=== PATIENT | female | born 1940 | race Caucasian/White ===

== ENCOUNTER 2024-02-07 09:17 | Inpatient (IN) | payer MEDICARE, MEDICAID, SELFPAY ==
[2024-02-07] VITALS (20 sets, daily range): BP systolic 116–162; BP diastolic 51–86; PULSE 90–110; RESP 15–21; TEMP 36.6–37.4; O2SAT 94–100; BMI 22.7
--- NOTE | 2024-02-07 10:02 | EKG_ITS ---
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
--- NOTE | 2024-02-07 10:20 | PC.NURSE ---
Possible pressur eulcers noted on pt's sacrum; pt given perineal care after having a BM; pt placed on new/clean briefs and placed allevyn foam dressing on pt's sacrum at this time.
[2024-02-07 11:31] LABS: Basophils % (Auto) 0 % (0-2.5); Eosinophils % (Auto) 0 % (0-10); Immature Granulocytes % (Auto) 0 % (0-0); Lymphocytes # (Auto) 0.7 Thou/mm3 (1.0-4.8); Lymphocytes % (Auto) 34 % (10-50); Mean Corpuscular HGB Conc 28.6 g/dl (31.0-37.0); Mean Corpuscular Hemoglobin 23.9 pg (25.0-35.0); Mean Corpuscular Volume 84 fL (80-100); Monocytes # (Auto) 0.9 Thou/mm3 (0.0-0.8); Monocytes % (Auto) 46 % (0-12); Neutrophils # (Auto) 0.4 Thou/mm3 (1.8-7.7); Neutrophils % (Auto) 20 % (37-80); Nucleated Red Blood Cell # 0.03 Thou/mm3 (0.00-0.00); Nucleated Red Blood Cell % 2 /100 WBC (0); RDW Standard Deviation 75.8 fL (36.4-46.3); Red Blood Count 1.59 Miln/mm3 (4.00-5.20)
--- NOTE | 2024-02-07 11:34 | PC.NURSE ---
SPOKE TO ARIK VILLEGAS, PT'S SON, REGARDING PT'S POC.
[2024-02-07 11:40] LABS: Hematocrit 13.3 % (36.0-46.0); Hemoglobin 3.8 g/dL (12.0-16.0); Platelet Count 35 Thou/mm3 (140-440)
--- NOTE | 2024-02-07 11:40 | EDNOTE_ITS ---
ED Recheck Abnl Lab Rx-RME/HPI General Chief Complaint: Recheck/Abnormal Lab/Rx Stated Complaint: ABNORMAL LABS Time Seen by Provider: 02/07/24 10:53 Arrival date/time: 02/07/24 09:17 RME / HPI RME / HPI narrative: 83 year old female with history of CAD, hypotension, diabetes, hyperlipidemia, COPD, UTI's, presents to the ED from [facility] for evaluation of low hemoglobin levels today. Per medics, [place] staff reported patient has had generalized weakness and on 02/05/2024 had labs drawn which showed H/H of 3.6/12.2. Sent here today for further evaluation and treatment. Related Data Allergies Allergy/AdvReac Type Severity Reaction Status Date / Time bee venom protein (honey bee) Allergy Severe Anaphylaxis Verified 02/07/24 10:47 iodine Allergy Severe Anaphylaxis Verified 02/07/24 10:47 Review of Systems Review of Systems Narrative Review of Systems: GEN: No fever, no chills, no weight loss, +generalized weakness EYES: No discharge, no pain HEENT: No ear pain, no congestion, no sore throat PULM: No shortness of breath, no cough, no congestion CV: No chest pain, no palpitations GI: No nausea, no vomiting, no diarrhea, no pain, no constipation : No frequency, no urgency, no dysuria MUSC/SKEL: No joint pain, no back pain SKIN: No rash NEURO: +generalized weakness, no headache Past Medical History Past Medical History CARDIAC: Positive Cardiac Disorders (BRADYCARDIA), Atherosclerotic Heart Disease and Hypercholesterolemia RESPIRATORY: Positive Respiratory Disorders, Chronic Obstructive Pulmonary Disease (COPD) and Pulmonary Embolism ENDOCRINE: Positive Endocrine Disorders and Diabetes Mellitus Type 2 PSYCHO/SOCIAL: Positive Depression and Anxiety Social History SMOKING STATUS: Current every day smoker ED Exam Narrative Physical exam: GENERAL APPEARANCE: alert and oriented x 4, well-developed, well-nourished, no acute distress. Patient looks pale. VITALS: All vitals were reviewed and the pulse ox is 95% on room air, which is normal according to my interpretation. HEENT: Normocephalic, atraumatic; pupils equal, round, reactive to light; EOMI; mucous membranes pink, moist; oropharynx clear NECK: Supple LUNGS: CTABL; no wheezes, no rales, no rhonchi HEART: Regular rate, regular rhythm; normal S1, S2; no murmurs ABDOMEN: non distended; normal BS; soft, no tenderness, no guarding, no rebound; no masses, no organomegaly, no hernia BACK: no CVA tenderness EXTREMITIES: atraumatic; no edema NEUROLOGIC: awake; alert and oriented x4; cranial nerves II-XII grossly intact; no focal sensory or motor deficits PSYCHIATRIC: appropriate mood and affect SKIN: warm, dry, normal color; no rashes Course Quality Measures none Orders Category Date Time Status Admit to Inpatient Status Routine Admission 02/07/24 17:24 Active Patient Condition Routine Admission 02/07/24 17:[address] Screening NOW Care 02/07/24 15:29 Active Swaging Machine Adjuster NOW Care 02/07/24 10:53 Completed EKG (ED ONLY) *Do not use* NOW Care 02/07/24 10:02 Completed NPO after Midnight ONCE Care 02/07/24 16:48 Active Notify provider NEEDED Care 02/07/24 17:24 Active Occult Blood,Stool (Nursing) NOW Care 02/07/24 13:45 Active Sequential Compression Device QSHIFT Care 02/07/24 17:27 Active Transfuse,blood/blood products NOW Care 02/07/24 14:27 Active Consult to Gastroenterology Stat Cons 02/07/24 16:46 Ordered Diet NPO after Midnight Diet 02/08/24 00:[address] abdomen pelvis wo con Stat Exams 02/07/24 15:30 Completed EKG (ED Only) Stat Exams 02/07/24 10:02 Draft B-Type Natriuretic Peptide Stat Lab 02/07/24 11:30 Completed Blood Culture (Lab) Stat Lab 02/07/24 17:00 Received CBC AM DRAW Lab 02/08/24 05:00 Ordered CBC AM DRAW Lab 02/09/24 05:00 Ordered CBC AM DRAW Lab 02/10/24 05:00 Ordered CBC Stat Lab 02/07/24 11:00 Completed Comprehensive Metabolic Panel AM DRAW Lab 02/08/24 05:00 Ordered Comprehensive Metabolic Panel AM DRAW Lab 02/09/24 05:00 Ordered Comprehensive Metabolic Panel AM DRAW Lab 02/10/24 05:00 Ordered Comprehensive Metabolic Panel Stat Lab 02/07/24 11:00 Completed Lactate (Lactic Acid) Stat Lab 02/07/24 17:00 Completed Lipase Stat Lab 02/07/24 11:00 Completed Magnesium AM DRAW Lab 02/08/24 05:00 Ordered Magnesium AM DRAW Lab 02/09/24 05:00 Ordered Magnesium AM DRAW Lab 02/10/24 05:00 Ordered Magnesium Stat Lab 02/07/24 11:00 Completed Occult Blood, Stool (LAB) Stat Lab 02/07/24 15:20 Completed Partial Thromboplastin Time Stat Lab 02/07/24 11:[address] Review Blood Smear Stat Lab 02/07/24 11:[address] Review Blood Smear Stat Lab 02/07/24 17:31 Ordered Phosphorous AM DRAW Lab 02/08/24 05:00 Ordered Phosphorous AM DRAW Lab 02/09/24 05:00 Ordered Phosphorous AM DRAW Lab 02/10/24 05:00 Ordered Procalcitonin Stat Lab 02/07/24 17:00 Received Prothrombin Time with INR Stat Lab 02/07/24 11:00 Completed Red Blood Cells Stat Lab 02/07/24 10:54 Results Troponin I Q6H Lab 02/07/24 17:30 Ordered Troponin I Q6H Lab 02/07/24 23:30 Ordered Troponin I Q6H Lab 02/08/24 05:30 Ordered Troponin I Stat Lab 02/07/24 11:00 Completed Type and Screen Stat Lab 02/07/24 10:54 Results UA [Urinalysis] Stat Lab 02/07/24 17:29 Ordered Acetaminophen Supp [Tylenol Supp] Med 02/07/24 17:25 Active 650 mg NM Q6H PRN Octreotide Acet Inj [SandoSTATIN Inj] Med 02/07/24 17:30 Discontinued 50 mcg IV X1 ONE Ondansetron Inj [Zofran Inj] Med 02/07/24 15:30 Discontinued 4 mg IV X1 ONE Pantoprazole Inj [Protonix Inj] Med 02/07/24 15:30 Discontinued 80 mg IV X1 ONE Pantoprazole/Ns 80Mg IV Premix [Protonix/NS 80mg IV Med 02/07/24 15:30 Active Premix] 80 mg in 100 ml IV X1 Senna [Senokot] Med 02/07/24 17:25 Ordered 1 tab PO QDAY PRN Sodium Chloride 0.9% [Ns] 100 ml Med 02/07/24 17:31 Ordered Octreotide Acet Inj [SandoSTATIN Inj] 1,000 mcg IV 50 mcg/hr fentaNYL INJ [Sublimaze Inj] Med 02/07/24 15:30 Discontinued 50 mcg IVP X1 ONE oxyCODONE/APAP 5/325 [Percocet 5/325] Med 02/07/24 17:25 Active 1 tab PO Q6H PRN Code Status Routine Oth 02/07/24 17:23 Ordered Vital Signs Vital signs: Vital Signs Temperature 99.1 F 02/07/24 09:19 Pulse Rate 107 H 02/07/24 09:19 Respiratory Rate 16 02/07/24 09:19 Blood Pressure 116/61 02/07/24 09:19 Pulse Oximetry (%) 100 02/07/24 09:19 Oxygen Delivery Method Room Air 02/07/24 09:19 Pulse ox is 100% on room air which is adequate. Recheck / Abnormal Lab / Rx MDM Narrative MDM Narrative:: Vania Tadeo am scribing for and in the presence of Dr. Acosta. Patient data External records reviewed:: EMS form and Residential records (I reviewed txfer ppw from [facility], I reviewed outpatient labs drawn 02/05/2024, pmhx, and medication list ) Clinical information provided by:: patient and EMS Social determinants that could affect healthcare access:: housing (SNF resident) Patient has the following chronic illnesses:: CAD, hypotension, diabetes, hyperlipidemia, COPD, UTI's How is presenting disease/condition affected by chronic disease/condition?: exacerbated by Evaluation data The following diagnostics were reviewed and interpreted by me:: lab results and EKG tracing(s) (sinus tachycardia, rate 111, nonspecific ST-T changes) Lab and/or radiology exams considered but not ordered:: None Interpretation Summary: H/H 3.8/13.3 Medications / Prescriptions Medications or Prescriptions considered but not ordered:: None Medication administrations:: Medication Administration History Acetaminophen (Acetaminophen Supp 650 Mg Supp) 650 mg NM Q6H PRN PRN Reason: Pain Scale 1-3 or fever 100.3 Stop: 03/08/24 17:24 Pantoprazole Sodium (Protonix/Ns 80mg Iv Premix) 80 mg in 100 mls @ 10 mls/hr IV X1 ONE Stop: 02/08/24 01:29 Last Admin: 02/07/24 16:29 Dose: 10 mls/hr Documented By: GM Octreotide Acetate 1,000 mcg/ (Sodium Chloride) 102 mls @ 5.1 mls/hr IV .Q20H CHUYITA; Protocol Stop: 02/12/24 17:31 Oxycodone/Acetaminophen (Oxycodone/Apap 5/325 Tablet) 1 tab PO Q6H PRN PRN Reason: PAIN SCALE 4-6 (Moderate Stop: 02/12/24 17:24 Sennosides (Senna Tablet) 1 tab PO QDAY PRN; Protocol PRN Reason: constipation Stop: 03/08/24 17:24 Discontinued Medications Fentanyl Citrate (Fentanyl Cit Inj 50 Mcg/Ml Amp 2ml) 50 mcg IVP X1 ONE Stop: 02/07/24 15:31 Last Admin: 02/07/24 16:17 Dose: 50 mcg Documented By: GM Octreotide Acetate (Octreotide Acet Inj 50 Mcg/Ml Vial) 50 mcg IV X1 ONE Stop: 02/07/24 17:31 Ondansetron HCl (Ondansetron Inj 2 Mg/Ml Inj 2 Ml) 4 mg IV X1 ONE; Protocol Stop: 02/07/24 15:31 Last Admin: 02/07/24 16:18 Dose: 4 mg Documented By: GM Pantoprazole Sodium (Pantoprazole Inj 40 Mg Vial) 80 mg IV X1 ONE Stop: 02/07/24 15:31 Last Admin: 02/07/24 16:18 Dose: 80 mg Documented By: See above Consultations Consultation(s) initiated? (list below): Yes Consultation #1 (Physician, Specialty, Details): Discussed test HPI, PMHx, lab, radiology results and/or management with hospitalist. Will admit for further evaluation and management. Accepts patient for admission. Time: 17:24 Diagnosis Recheck Differential Diagnosis: warfarin-induced coagulopathy and other (anemia, dehydration, abnormal labs recheck) Most likely diagnosis given after review of the tests above:: As noted below. Admission Indicated Admission indicated?: indicated Admission Request Was there a request for admission?: Yes Admission Attestation Admission request attestation: Discussed case with [] from Hospitalist service regarding admission. Discussed patients ED course, exam findings, labs, and radiology results. The Hospitalist [agrees,declines] to accept the patient for admission. Disposition Plan Disposition Plan: Admit Discharge Plan Prescriptions/Referrals Referrals: Floyd Carlson MD [Primary Care Provider] - In 1 week Patient/Caregiver Discharge Instructions Print Language: [place]
[2024-02-07 11:51] LABS: INR 1.1 (0.9-1.3); Partial Thromboplastin Time 21.4 Seconds (22.0-36.0); Prothrombin Time 11.6 Seconds (9.0-12.2)
[2024-02-07 11:59] LABS: B-Type Natriuretic Peptide 738 pg/mL (0-100)
[2024-02-07 12:16] LABS: Slide Review Platelets confirmed
[2024-02-07 12:18] LABS: Alanine Aminotransferase < 7 U/L (10-49); Albumin, Serum 3.7 gm/dL (3.4-4.8); Albumin/Globulin Ratio 1.6 (1.2-2.2); Alkaline Phosphatase 74 U/L (46-116); Anion Gap 9 (7-16); Aspartate Amino Transferase 13 U/L (0-34); BUN/Creatinine Ratio 46 Ratio (12-20); Bilirubin,Total 0.3 mg/dL (0.3-1.2); Blood Urea Nitrogen 32 mg/dL (9-23); Calcium 8.8 mg/dL (8.3-10.6); Chloride 107 mMol/L (98-107); Creatinine (Component) 0.7 mg/dL (0.6-1.3); Estimated Creatinine Clearance 57.1 mL/min (>60); Globulin 2.3 gm/dL (2.3-3.5); Glucose 178 mg/dL (74-106); Lipase 23 U/L (12-53); Magnesium 2.2 mg/dL (1.6-2.6); Osmolality,Calculated 288 (275-295); Potassium 3.8 mMol/L (3.4-5.1); Sodium 139 mMol/L (136-145); eGFR > 60 See Note
[2024-02-07 12:21] LABS: Troponin I 1.361 ng/mL (0.0-0.045)
[2024-02-07 12:22] LABS: Path Review Blood Smear Sent to Pathologist
--- NOTE | 2024-02-07 15:27 | PC.NURSE ---
Stool for occult blood positive.
--- NOTE | 2024-02-07 15:30 | XR_ITS ---
Examination: CT abdomen and pelvis without contrast. Coronal 3-D reconstructions. Sagittal 2-D reconstructions. Date and time of exam:February 07, 2024 at 1538 hrs. Indications: Left abdominal pain today with melena, abnormal laboratory examinations today CTDI: vol (mGy): 5.69 DLP: (mGycm): 340 Technique: Axial images of the abdomen have been obtained, 3 mm slice thickness Intravenous contrast material has not been administered. Low dose protocols were performed. One or more of the following dose reduction techniques were used; automated exposure control, adjustment of the mA and/or KV according to patient size, use of iterative reconstruction technique. Findings: 16mm bleb in the left lower lobe No focal liver or splenic lesion Absent gallbladder No pancreatic or adrenal mass Moderate bilateral renal parenchymal scar formation Right renal staghorn type calcifications including in the right renal pelvis extending into the ureteropelvic junction, however no hydronephrosis Abdominal aortic calcification no aneurysmal dilatation Colonic diverticulosis Diffuse nonspecific colitis pattern, mild wall thickening on this noncontrast study Large amounts of stool in the rectum with thickening of the rectal wall up to 8 mm No bladder mass Absent uterus No pelvic mass Severe osteopenia Impression: Moderate bilateral renal parenchymal scar formation Right renal calculi, but no hydronephrosis No CT findings of appendicitis or bowel obstruction Diffuse nonspecific colitis pattern Large amounts of stool in the rectum with thickening the rectal wall up to 8 mm, consider proctitis, other etiologies for the wall thickening not excluded, consider direct inspection of the rectum
--- NOTE | 2024-02-07 15:36 | PC.NURSE ---
Patient gone to ct via gurney with transporter.
[2024-02-07 15:43] LABS: OBS Developer Lot # 124; OBS Performed By vasqk2; OBS QC OK? Yes; Occult Blood, Stool Positive (Negative)
--- NOTE | 2024-02-07 16:00 | PC.NURSE ---
DR. Leandra DERAS MADE AWARE OF PT'S LAB VALUES AND RN CALRIFIED IT MD WANTED TO INITIATE SEPSIS ALERT DUE TO PT'S LOW WBC AND MILD TACHYCARDIA. PER DR. DERAS, HOLD OFF ON INITIATING SEPSIS ALERT AT THIS TIME; WILL ORDER LACTIC ACID AND PROCALCITONIN FIRST.
[2024-02-07] MEDS: fentaNYL CIT INJ 50 mCg/ML AMP 2ML IVP (16:17)
[2024-02-07] MEDS: ONDANSETRON INJ 2 MG/ML INJ 2 ML 4 MG IV (16:18)
[2024-02-07] MEDS: PANTOPRAZOLE INJ 40 MG VIAL 80 MG IV (16:18)
[2024-02-07] MEDS: PANTOPRAZOLE/NS 80MG IV PREMIX 80 MG/100 ML BAG 10 MG IV (16:29)
--- NOTE | 2024-02-07 17:05 | PC.NURSE ---
DR. POSADA AT BEDSIDE ASSESSING PT.
[2024-02-07 17:09] LABS: Lactate (Lactic Acid) 1.6 mMol/L (0.4-2.0)
[2024-02-07 17:43] LABS: Procalcitonin 0.24 ng/ml (0.0-0.49)
--- NOTE | 2024-02-07 17:43 | ESHP_ITS ---
<Statement entered by Susan Andrea MD - 02/07/24 20:33> 83 yrs old female with CAD, type 2 diabetes mellitus, hyperlipidemia, COPD, hypertension, recurrent UTIs, active smoker who came to the ED from [facility] due to weakness and low hemoglobin level, she received 3 units of PRBC, GI on board, mild elevated troponin likely demand ischemaia, will trend trops, cardio on board. NPO after midnight possible egd tomorrow. Patient is DNI/DNR .patient was on xeralto for PE , last dose was yesterday morning . I discussed with and supervised my co-resident involved in the care of this patient. I agree with the assessment and plan as documented above. Susan Andrea,PGY-3 Disclaimer: Despite multiple revisions, due to the dictation software being used, the document below may not be free of grammatical errors including phonetic/typographic errors. However, this does not deter from our commitment to providing health care in the patient's best interest in mind. Documentation for date of: 02/07/24 HPI History of Present Illness Chief complaint: general weakness History of present illness: The patient is a 83-year-old female with a previous medical history of CAD, type 2 diabetes mellitus, hyperlipidemia, COPD, hypertension, recurrent UTIs, active smoker who came to the ED from [facility] due to weakness and low hemoglobin level. Son at the bedside, reports that she is looking pale, reports that she has been feeling weak for a long time. ED course: She was normotensive, tachycardic, saturating well on room air, afebrile. Labs showed neutropenia 20., Hgb 3.8, Hct 13.3, platelet 35, BUN 32, Creatinine 0.7, eGFR 46, glucose 178, lactic acid 1.6, troponin 1.361, BNP 738. Blood smear was sent to pathologist. FOBT was positive. EKG showed sinus tachycardia, abdomen pelvis CT showed bilateral renal parenchymal scar, nephrolithiasis without hydronephrosis, diffuse nonspecific colitis and proctitis pattern and large amount of stool in the rectum. GI specialist Dr. Flores was consulted, plan is to put patient on n.p.o. after midnight and perform EGD and colonoscopy. She was also started on pantoprazole IV. Contacted [facility], spoke with Nurse Rosie, reported that patient is currently taking Xarelto and that she's more weak than usual. She confirmed that she is a smoker, but there was no information regarding alcohol abuse. Had a discussion with patient and the son with Dr. Andrea present regarding code status and patient declined resuscitation in case of cardiac arrest. She demonstrated understanding of her choice and confirmed it. Her code status was made DNR. Patient will be admitted for GIB and neutropenia work up. Review of Systems Review of Systems Systems Reviewed: All systems reviewed, normal except as documented Narrative Review of Systems: General: Denies weight loss, fever and chills. Endorses feeling weakness and general pain in the body. HEENT: Denies changes in vision and hearing. Resp: Denies SOB, cough and wheezing. CVS: Denies palpitations and CP. GI: Denies abdominal pain, nausea, vomiting and diarrhea. : Denies dysuria and urinary frequency. MSK: General body pain. Neuro: Denies headache and syncope. Past Medical History Past Medical History CARDIAC: Positive Cardiac Disorders (BRADYCARDIA), Atherosclerotic Heart Disease and Hypercholesterolemia RESPIRATORY: Positive Respiratory Disorders, Chronic Obstructive Pulmonary Disease (COPD) and Pulmonary Embolism ENDOCRINE: Positive Endocrine Disorders and Diabetes Mellitus Type 2 PSYCHO/SOCIAL: Positive Depression and Anxiety Social History SMOKING STATUS: Current every day smoker Exam Vital Signs Temp Pulse Resp BP Pulse Ox O2 Del Method 98.1 F 101 H 15 138/55 H 99 Room Air 02/07/24 17:32 02/07/24 17:32 02/07/24 17:32 02/07/24 17:32 02/07/24 17:32 02/07/24 16:50 Narrative Exam Physical Exam General: Awake, somnolent. HEENT: Normocephalic, atraumatic, mucous membranes moist. Heart: Regular rate and rhythm, no murmurs. Tachycardic. Lungs: Clear to auscultation with no wheezing or crackles. Abdomen: Soft, nondistended, diffusely tender, positive bowel sounds. ? Neurologic: Alert and oriented x3, no gross neurological deficit, and patient able to move all 4 extremities. Extremities: No edema. Skin: No rash or ecchymoses. Results: Labs 02/08/24 05:42 02/08/24 05:42 Labs: Short CBC 02/07/24 Range/Units 11:00 WBC 2.0 L (3.6-11.0) Thou/mm3 Hgb 3.8 L* (12.0-16.0) g/dL Hct 13.3 L* (36.0-46.0) % Plt Count 35 L (140-440) Thou/mm3 BMP 02/07/24 11:00 Sodium 139 Potassium 3.8 Chloride 107 Carbon Dioxide 23.0 BUN 32 H Creatinine 0.7 Glucose 178 H Calcium 8.8 Cardiac Enzymes 02/07/24 Range/Units 11:00 Troponin I 1.361 H* (0.0-0.045) ng/mL Liver Function 02/07/24 Range/Units 11:00 Total Bilirubin 0.3 (0.3-1.2) mg/dL AST 13 (0-34) U/L ALT < 7 L (10-49) U/L Alkaline Phosphatase 74 (46-116) U/L Albumin 3.7 (3.4-4.8) gm/dL Quality Measures Quality Measures VTE prophylaxis Advance care planning discussed with:: patient and child Medications Home Medications and Allergies Allergies Allergy/AdvReac Type Severity Reaction Status Date / Time bee venom protein (honey bee) Allergy Severe Anaphylaxis Verified 02/07/24 10:47 iodine Allergy Severe Anaphylaxis Verified 02/07/24 10:47 Visit Medications Acetaminophen (Acetaminophen Supp 650 Mg Supp) 650 mg AR Q6H PRN PRN Reason: Pain Scale 1-3 or fever 100.3 Stop: 03/08/24 17:24 Pantoprazole Sodium (Protonix/Ns 80mg Iv Premix) 80 mg in 100 mls @ 10 mls/hr IV X1 ONE Stop: 02/08/24 01:29 Last Admin: 02/07/24 16:29 Dose: 10 mls/hr Octreotide Acetate 1,000 mcg/ (Sodium Chloride) 102 mls @ 5.1 mls/hr IV .Q20H CHUYITA; Protocol Stop: 02/12/24 17:31 Octreotide Acetate 1,000 mcg/ (Sodium Chloride) 102 mls @ 5.1 mls/hr IV .Q20H CHUYITA; Protocol Stop: 02/08/24 13:44 Oxycodone/Acetaminophen (Oxycodone/Apap 5/325 Tablet) 1 tab PO Q6H PRN PRN Reason: PAIN SCALE 4-6 (Moderate Stop: 02/12/24 17:24 Sennosides (Senna Tablet) 1 tab PO QDAY PRN; Protocol PRN Reason: constipation Stop: 03/08/24 17:24 Discontinued Medications Fentanyl Citrate (Fentanyl Cit Inj 50 Mcg/Ml Amp 2ml) 50 mcg IVP X1 ONE Stop: 02/07/24 15:31 Last Admin: 02/07/24 16:17 Dose: 50 mcg Octreotide Acetate (Octreotide Acet Inj 50 Mcg/Ml Vial) 50 mcg IV X1 ONE Stop: 02/07/24 17:31 Ondansetron HCl (Ondansetron Inj 2 Mg/Ml Inj 2 Ml) 4 mg IV X1 ONE; Protocol Stop: 02/07/24 15:31 Last Admin: 02/07/24 16:18 Dose: 4 mg Pantoprazole Sodium (Pantoprazole Inj 40 Mg Vial) 80 mg IV X1 ONE Stop: 02/07/24 15:31 Last Admin: 02/07/24 16:18 Dose: 80 mg Assessment & Plan Plan The patient is a 83-year-old female with a previous medical history of CAD, type 2 diabetes mellitus, hyperlipidemia, COPD, hypertension, recurrent UTIs who came to the ED from [facility] due to weakness and low hemoglobin level. Son at the bedside, reports that she is looking pale, reports that she has been feeling weak for a long time. #GI bleeding #Acute blood loss anemia Upper GI bleed vs lower GI bleed versus varices bleeding Most likely upper GI bleed. Patient has melena, BUN 32. Plan: ?GI consulted, appreciate recommendations ? Pantoprazole drip ? Octreotide drip #Neutropenia #Thrombocytopenia #Severe anemia Son at the bedside reported that routine blood work showed severe anemia. Reports that patient looks pale. Plan: ? Plan to transfuse 3 units of PRBC ? Posttransfusion H&H ? Peripheral blood smear ? Reticulocyte count ? Iron panel ? Neutropenic precautions #History of PE Spoke with nurse at the [facility], reports that she's Xarelto, received last dose yesterday at 20:00. Plan: - Xarelto on hold due to GI bleeding. #Elevated troponin I #History of COPD #History of hypotension #History of CAD #Hyperlipidemia Troponin elevation most likely in the setting of demand ischemia due to severe anemia. Initial EKG showed sinus tachycardia. Plan: - Anticoagulants on hold for now - Trend troponin I q6hr - Cardiology consult - Repeat EKG #Type 2 diabetes mellitus Plan: ? Insulin sliding scale Health maintenance: FEN: NPO after midnight DVT prophylaxis: SCDs GI prophylaxis: Pantoprazole IV Dispo: tele bed CODE STATUS: DNR Plan of care discussed with attending Dr. Lewis and PGY-[address] Andrea. Joselyn Sin MD, PGY 1. Attending Provider Attestation/Addendum Shannen Tadeo, , attest that I was physically present for the francisco portions of the service and evaluated the patient with the resident and I reviewed and discussed the case with the resident and agree with the resident's findings and plans of care as documented above Patient is an 83-year-old female with past medical history of CAD, pulmonary embolism, type II by diabetes, COPD, HLD, hypertension who was brought to ED from her SNF after she was found to have progressively worsening generalized weakness and low hemoglobin. Recent labs drawn showed an hemoglobin of 3.6 per chart review. Upon evaluation in the ED, patient is noted to be very pale and repeat hemoglobin was 3.8. She is also noted to have pancytopenia with WBCs of 2.0 and platelet count of 35. Family member was not at bedside at time of my evaluation. Patient is not a good historian and states I do not know to several questions. She otherwise is ANO x 2 to self and location. Per nursing, patient was noted to have a brown stool, but was tested positive for blood on stool occult. Patient also endorses having dysuria. She endorses feeling cold, but denies any fevers. She points to her umbilical region indicating there is pain. She also reports mild shortness of breath. She denies any active chest pain otherwise. Troponin is also noted to be 1.361. EKG shows no ST or T wave changes. Suspect that this is secondary to demand ischemia. Cardiology as patient will need sedation for endoscopy. Will check reticulocyte count due to pancytopenia. Will follow-up with peripheral smear as well. Patient is to be transfused 3 units of PRBCs. Posttransfusion H&H. CT abdomen pelvis shows a diffuse nonspecific colitis pattern with large amounts of stool in the rectum and rectal wall thickening. GI was consulted from ED and will be following. Will place patient n.p.o. after midnight. Per retirement, patient last took Xarelto last night at 8 PM due to History of pulmonary embolism. However, coags are not significant. No need to reverse Xarelto at this time. Patient may benefit from bone marrow studies in the future given pancytopenia. Patient is tachycardic, but has not been hypotensive. Suspect that this has been a slow chronic issue. Will admit patient to telemetry for further workup medical management of acute GI bleed.
--- NOTE | 2024-02-07 17:45 | PC.NURSE ---
PT HAD ANOTHER BM; PT GIVEN PERINEAL CARE AND BED BATH WITH WARM BATH CLOTHS. NEW ALLEVYN FOAM DRESSING PLACED ON PT'S SACRUM
[2024-02-07 18:16] LABS: Troponin I 1.889 ng/mL (0.0-0.045)
[2024-02-07 18:21] LABS: Immature Reticulocyte Fraction 32.8 % (3.0-15.9); Reticulocyte % (Auto) 3.3 % (0.5-1.5); Reticulocyte Hgb Content 23.3 pg (28.0-35.0)
--- NOTE | 2024-02-07 18:25 | PC.NURSE ---
DR. MUNGUIA AT BEDSIDE AND MADE AWARE OF PT'S TROPONIN LEVEL. PT ALSO NOW C/O NEW ONSET CHEST PAIN. VERBAL ORDERS RECEIVED FOR REPEAT EKG.
[2024-02-07 18:34] LABS: Total Iron Binding Capacity 389 mcg/dL (250-425)
[2024-02-07 18:46] LABS: Iron 60 mcg/dL (50-170); Percent Iron Saturation 15 % (20-55); Unsaturated Iron Binding 329 (225-295)
[2024-02-07] MEDS: OCTREOTIDE ACET INJ 50 mCg/ML VIAL IV (18:49)
[2024-02-07] MEDS: OCTREOTIDE ACET INJ 1,000 MCG in SODIUM CHLORIDE 0.9% 100 ML 5.1 MCG IV (18:59)
--- NOTE | 2024-02-07 19:19 | PC.NURSE ---
RN SPOKE TO DR. COHN THROUGH PHONE AND ASKED TO LOOK AT PT'S REPEAT EKG DUE TO ABNORMAL RESULT. NO NEW ORDERS AT THIS TIME.
[2024-02-07] MEDS: oxyCODONE/APAP 5/325 TABLET 1 TAB PO (19:25)
[2024-02-07] MEDS: INSULIN LISPRO (AdmeLOG) 1 UNIT/0.01 ML UNIT SC (21:07)
--- NOTE | 2024-02-07 23:49 | ESCONSULT_ITS ---
HPI Data of Consult Requesting Physician: Shannen Lewis DO Primary Care Provider: Floyd Carlson MD Consult Narrative Reason for consult: H/H 3.8/13.3 History of present illness: 83 years old female transferred to emergency room at [facility] from [facility] with a low hemoglobin hematocrit of 3.8 and 13.3 and a WBC count of 2.0 and a platelet count of 35,000 Patient had a BUN/creatinine of 27 and 0.5 She also had an elevated troponin of 2.542 without any EKG changes CT scan of the abdomen pelvis done without contrast in the emergency room showed large amount of stool in the rectum and thickening of the rectal wall Patient does have a history of coronary artery disease hypertension diabetes mellitus type 2 hypothyroidism COPD and recurrent UTIs Not much history is obtained from the patient There is no clinical history of vickey GI bleeding in the form of hematemesis melena or hematochezia cc:: cc: Shannen Lewis DO Review of Systems Review of Systems ROS Unobtainable: unobtainable due to medical condition Past Medical History Surgical History OTHER SURGICAL HX: As in the history of present illness Meds Home Medications and Allergies Allergies Allergy/AdvReac Type Severity Reaction Status Date / Time bee venom protein (honey bee) Allergy Severe Anaphylaxis Verified 02/07/24 10:47 iodine Allergy Severe Anaphylaxis Verified 02/07/24 10:47 Exam Vital Signs Temp Pulse Resp BP Pulse Ox O2 Del Method 97.9 F 90 16 130/65 97 Room Air 02/07/24 21:15 02/07/24 22:47 02/07/24 21:15 02/07/24 22:47 02/07/24 21:15 02/07/24 18:28 Constitutional Comments: Laying in bed comfortably Routine HEENT Exam Comments: pale sclera Routine Respiratory Exam Comments: Normal to auscultation Routine Abdominal Exam Comments: Soft nontender Results Labs 02/08/24 05:42 02/08/24 05:42 Labs: Short CBC 02/07/24 Range/Units 11:00 WBC 2.0 L (3.6-11.0) Thou/mm3 Hgb 3.8 L* (12.0-16.0) g/dL Hct 13.3 L* (36.0-46.0) % Plt Count 35 L (140-440) Thou/mm3 BMP 02/07/24 11:00 Sodium 139 Potassium 3.8 Chloride 107 Carbon Dioxide 23.0 BUN 32 H Creatinine 0.7 Glucose 178 H Calcium 8.8 Cardiac Enzymes 02/07/24 02/07/24 Range/Units 11:00 17:00 Troponin I 1.361 H* 1.889 H* D (0.0-0.045) ng/mL Liver Function 02/07/24 Range/Units 11:00 Total Bilirubin 0.3 (0.3-1.2) mg/dL AST 13 (0-34) U/L ALT < 7 L (10-49) U/L Alkaline Phosphatase 74 (46-116) U/L Albumin 3.7 (3.4-4.8) gm/dL Assessment and Plan Additional Assessment & Plan Additional Plan: # Pancytopenia with leukopenia and thrombocytopenia Patient may have an underlying hematological disorder due to bone marrow suppression In addition she may have occult GI bleeding Suggestions complete iron panel B12 folate level Hematology consultation for possible bone marrow biopsy and aspirate Complete GI workup with initial upper endoscopy and if there is negative for fiberoptic colonoscopy after GoLytely prep to also evaluate the thickening of the rectal wall as evidenced by CT scan imaging of the abdomen pelvis without contrast Agree with the blood transfusion Other medical problems include # Coronary artery disease with elevated troponin most likely due to underlying low hemoglobin hematocrit and demand ischemia # COPD # Hypothyroidism # Hyperlipidemia # UTI Thank you very much for the opportunity to participate in the care of this patient
[2024-02-07 23:56] LABS: Hematocrit 28.3 % (36.0-46.0); Hemoglobin 9.5 g/dL (12.0-16.0)
[2024-02-08] VITALS (12 sets, daily range): BP systolic 115–161; BP diastolic 56–93; PULSE 78–100; RESP 12–22; TEMP 36.1–36.3; O2SAT 92–100; BMI 22.7
[2024-02-08 00:11] LABS: Troponin I 2.542 ng/mL (0.0-0.045)
--- NOTE | 2024-02-08 00:50 | EKG_ITS ---
[facility] Test Date: 2024-02-08 Pat Name: LI ZURITA Department: Room: S271A Gender: Female Company Driver: FAHAD : 1940 Requested By: Inocencia Lance Order Number: [id number] Reading MD: Inocencia Lance Measurements Intervals [place] Rate: 88 P: 74 [place]: 112 QRS: -42 QRSD: 94 T: -83 QT: 412 QTc: 501 Interpretive Statements SINUS RHYTHM WITH SHORT OH INTERVAL POSSIBLE LEFT ATRIAL ENLARGEMENT MARKED LEFT AXIS DEVIATION ST DEVIATION AND MODERATE T-WAVE ABNORMALITY, CONSIDER LATERAL ISCHEMIA ST DEVIATION AND MODERATE T-WAVE ABNORMALITY, CONSIDER INFERIOR ISCHEMIA Compared to ECG 02/07/2024 10:42:08 Left-axis deviation now present Possible ischemia now present Sinus tachycardia no longer present T-wave abnormality still present /store/S0/[id number]/[id number].pdf
--- NOTE | 2024-02-08 00:50 | PC.NURSE ---
Dr. Lance notified of critical troponin of 2.542. Dr. Oden ordered an EKG.
[2024-02-08 02:08] LABS: Hematocrit 30.1 % (36.0-46.0)
[2024-02-08 06:16] LABS: Basophils % (Auto) 0 % (0-2.5); Eosinophils % (Auto) 0 % (0-10); Hematocrit 29.6 % (36.0-46.0); Hemoglobin 9.7 g/dL (12.0-16.0); Immature Granulocytes % (Auto) 0 % (0-0); Lymphocytes # (Auto) 1.3 Thou/mm3 (1.0-4.8); Lymphocytes % (Auto) 49 % (10-50); Mean Corpuscular HGB Conc 32.8 g/dl (31.0-37.0); Mean Corpuscular Hemoglobin 27.9 pg (25.0-35.0); Mean Corpuscular Volume 85 fL (80-100); Monocytes % (Auto) 39 % (0-12); Neutrophils # (Auto) 0.3 Thou/mm3 (1.8-7.7); Neutrophils % (Auto) 12 % (37-80); Nucleated Red Blood Cell # 0.06 Thou/mm3 (0.00-0.00); Nucleated Red Blood Cell % 2 /100 WBC (0); RDW Standard Deviation 53.1 fL (36.4-46.3); Red Blood Count 3.48 Miln/mm3 (4.00-5.20)
[2024-02-08 06:18] LABS: White Blood Count 2.6 Thou/mm3 (3.6-11.0)
[2024-02-08 06:19] LABS: Platelet Count 24 Thou/mm3 (140-440)
--- NOTE | 2024-02-08 06:22 | PC.NURSE ---
Dr. Montoya made aware of critically low platelet of 24. No new orders.
[2024-02-08 06:51] LABS: Slide Review Platelets confirmed
[2024-02-08 07:14] LABS: Alanine Aminotransferase 7 U/L (10-49); Albumin, Serum 3.3 gm/dL (3.4-4.8); Albumin/Globulin Ratio 1.6 (1.2-2.2); Alkaline Phosphatase 69 U/L (46-116); Anion Gap 9 (7-16); Aspartate Amino Transferase 14 U/L (0-34); BUN/Creatinine Ratio 54 Ratio (12-20); Bilirubin,Total 1.1 mg/dL (0.3-1.2); Blood Urea Nitrogen 27 mg/dL (9-23); Calcium (Corrected) 8.6 mg/dL (8.5-10.1); Carbon Dioxide 23.7 mMol/L (20.0-31.0); Chloride 111 mMol/L (98-107); Creatinine (Component) 0.5 mg/dL (0.6-1.3); Globulin 2.1 gm/dL (2.3-3.5); Glucose 109 mg/dL (74-106); Magnesium 2.2 mg/dL (1.6-2.6); Osmolality,Calculated 292 (275-295); Potassium 4.1 mMol/L (3.4-5.1); Sodium 144 mMol/L (136-145); Total Protein 5.4 gm/dL (5.7-8.2); eGFR > 60 See Note
[2024-02-08 07:17] LABS: Troponin I 2.721 ng/mL (0.0-0.045)
--- NOTE | 2024-02-08 07:19 | PC.NURSE ---
Reported to critical lab Troponin of 2.721. No new orders at this time
[2024-02-08] MEDS: oxyCODONE/APAP 5/325 TABLET 1 TAB PO ×2 (07:44→18:09)
[2024-02-08] MEDS: PANTOPRAZOLE INJ 40 MG VIAL IV ×2 (07:44→21:00)
--- NOTE | 2024-02-08 09:11 | PC.SS ---
Agriculture Technician (ANABELLA)Carla attempted to complete assessment with patient; however, staff was changing her. SW contacted patient's son, Baljit via telephone call. SW left a voice message to call back.
--- NOTE | 2024-02-08 12:29 | PC.NURSE ---
Obtained consent for EGD over the phone from patients son Baljit Rich, with SIGRID Braswell as a second witness
--- NOTE | 2024-02-08 13:21 | PC.NURSE ---
Patient taken to preop via hue harris at bedside
[2024-02-08 13:38] LABS: Folate 15.33 ng/mL (>5.38); Vitamin B12 311 pg/mL (211-911)
--- NOTE | 2024-02-08 13:59 | ESCONSULT_ITS ---
<Statement entered by Tushar Self MD - 02/11/24 10:15> I personally evaluated the patient along with resident physician Dr. Junior PGY2 patient given severe anemia hemoglobin 3.7 now back up to 9 g plus after transfusion 3 units doing much better no chest pain shortness but she never had any cardiac symptoms initial troponin was high possibly type II troponin. Still not clear whether the source of GI bleeding Dr. Flores content management specialist is on board investigating possibly require upper and lower endoscopy and colonoscopy. Will continue to monitor the patient if there is significant no changes such as chest pain or other cardiac symptoms might consider further workup but at this time we will treat as type II myocardial infarction and type II troponin elevations. HPI Data of Consult Requesting Physician: Shannen Lewis DO Admitting Provider: Shannen Lewis DO Attending Provider: Shannen Lewis DO Primary Care Provider: Floyd Carlson MD Consult Narrative History of present illness: 83-year-old female patient with significant medical history for CAD, ?PE (on Xarelto) DM2, HLD, COPD, HTN, recurrent UTIs and current smoker was brought from [facility] due to weakness and low hemoglobin levels. Patient is accompanied by son who provides further information and reports that patient has been feeling weak for a long time. Patient denied fevers, chills, chest pain/pressure, abdominal pain, diarrhea, constipation or other associate symptoms. In ED patient was found to be tachycardic and labs indicated hemoglobin of 3.8 and hematocrit 13.3 with platelets of 35. BNP was 738 and troponin was 1.36 which over time up trended. FOBT was found to be positive, EKG showed sinus tachycardia. Abdomen pelvis CT showed diffuse nonspecific colitis and proctitis pattern and large amount of stool in the rectum. GI Dr. Flores was consulted and patient was admitted for further workup. Primary team spoke to family member and patient CODE STATUS was made to be DNR/DNI. Cardiology team was consulted regarding elevated troponins. Medical Hx: CAD, PE (on Xarelto), DM2, HLD, COPD, HTN, recurrent UTI, depression Social Hx: Chronic smoker, denies drinking alcohol or using other illicit drugs, lives at [facility] CODE STATUS: DNR 02/08/24: Patient has received 3 units of PRBC, latest hemoglobin is at 9.7. Patient underwent endoscopy by Dr. Flores which showed no source of bleeding. Patient will be prepped for colonoscopy tomorrow. Troponins peaked at 2.7 before downtrending, patient denies chest pain or chest pressure and EKG shows no ST or T wave abnormalities. Patient has type II troponinemia secondary to demand. cc:: cc: Shannen Lewis DO Review of Systems Review of Systems Systems Reviewed: All systems reviewed, normal except as documented Exam Vital Signs Temp Pulse Resp BP Pulse Ox O2 Del Method O2 Flow Rate 97.0 F 100 22 H 161/93 H 97 Room Air 3 02/08/24 12:00 02/08/24 13:55 02/08/24 13:55 02/08/24 13:55 02/08/24 13:55 02/08/24 12:00 02/08/24 13:55 Narrative Exam Constitutional: Frail looking elderly, in no acute distress, lying in bed HEENT: NCAT, EOMI, reactive round pupils b/l, patent nares b/l, moist mucous membranes Lung: CTAB, no wheezing, no rhonchi Heart: Regular S1S2, no murmurs, gallops, or rubs Abdomen: Soft, non-distended, non-tender, bowel sounds present throughout Extremities: No cyanosis, clubbing, or edema, LE pulses present b/l Neurologic: No focal sensory or motor deficits noted, AOx3, appropriate affect Skin: Warm, dry, no lesions or rashes noted Results Labs 02/08/24 05:42 02/08/24 05:42 Labs: Short CBC 02/07/24 02/08/24 02/08/24 Range/Units 23:25 01:44 05:42 WBC 2.6 L (3.6-11.0) Thou/mm3 Hgb 9.5 L D 10.0 L 9.7 L (12.0-16.0) g/dL Hct 28.3 L D 30.1 L 29.6 L (36.0-46.0) % Plt Count 24 L* D (140-440) Thou/mm3 BMP 02/08/24 05:42 Sodium 144 Potassium 4.1 Chloride 111 H Carbon Dioxide 23.7 BUN 27 H Creatinine 0.5 L Glucose 109 H D Calcium 8.0 L Cardiac Enzymes 02/07/24 02/07/24 02/08/24 Range/Units 17:00 23:25 05:42 Troponin I 1.889 H* D 2.542 H* D 2.721 H* (0.0-0.045) ng/mL Liver Function 02/08/24 Range/Units 05:42 Total Bilirubin 1.1 D (0.3-1.2) mg/dL AST 14 (0-34) U/L ALT 7 L (10-49) U/L Alkaline Phosphatase 69 (46-116) U/L Albumin 3.3 L (3.4-4.8) gm/dL Quality Measures Quality Measures VTE prophylaxis Advance care planning discussed with:: other Medications Home Medications and Allergies Allergies Allergy/AdvReac Type Severity Reaction Status Date / Time bee venom protein (honey bee) Allergy Severe Anaphylaxis Verified 02/07/24 10:47 iodine Allergy Severe Anaphylaxis Verified 02/07/24 10:47 Visit Medications Acetaminophen (Acetaminophen Supp 650 Mg Supp) 650 mg UT Q6H PRN PRN Reason: Pain Scale 1-3 or fever 100.3 Stop: 03/08/24 17:24 Dextrose (Dextrose 50%-Water Inj 50 Ml Syringe) 25 ml IV Q15MIN PRN PRN Reason: BG 50-70 responsive npo pt Stop: 03/08/24 19:07 Dextrose (Dextrose 50%-Water Inj 50 Ml Syringe) 50 ml IV Q15MIN PRN PRN Reason: BG <50 OR BG <70 & pt unresponsive Stop: 03/08/24 19:07 Fentanyl Citrate (Fentanyl Cit Inj 50 Mcg/Ml Amp 2ml) 50 mcg IV Q2M PRN PRN Reason: MODERATE SEDATION Glucagon (Glucagon Inj 1 Mg Vial) 1 mg IM Q15MIN PRN PRN Reason: BG <70, and no IV access Octreotide Acetate 1,000 mcg/ (Sodium Chloride) 102 mls @ 5.1 mls/hr IV .Q20H CHUYITA; Protocol Stop: 02/12/24 17:31 Insulin Human Lispro (Insulin Lispro (Admelog) 1 Unit/0.01 Ml Unit) 0 unit SC ACHS CHUYITA; Protocol Stop: 03/08/24 20:59 Last Admin: 02/08/24 11:14 Dose: Not Given Midazolam HCl (Midazolam Inj 1 Mg/Ml Vial 2 Ml) 2 mg IV Q2M PRN PRN Reason: Moderate Sedation Nitroglycerin (Nitroglycerin 0.4 Mg Subl Btl #25) 0.4 mg SL Q5MIN PRN PRN Reason: CHEST PAIN Oxycodone/Acetaminophen (Oxycodone/Apap 5/325 Tablet) 1 tab PO Q6H PRN PRN Reason: PAIN SCALE 4-6 (Moderate Stop: 02/12/24 17:24 Last Admin: 02/08/24 07:44 Dose: 1 tab Pantoprazole Sodium (Pantoprazole Inj 40 Mg Vial) 40 mg IV BID CHUYITA Stop: 03/09/24 08:59 Last Admin: 02/08/24 07:44 Dose: 40 mg Sennosides (Senna Tablet) 1 tab PO QDAY PRN; Protocol PRN Reason: constipation Stop: 03/08/24 17:24 Discontinued Medications Benzocaine (Benzocaine 20% (Hurricaine) [place] 1 Dose) 0 dose TOP X1 ONE Stop: 02/08/24 11:59 Fentanyl Citrate (Fentanyl Cit Inj 50 Mcg/Ml Amp 2ml) 50 mcg IVP X1 ONE Stop: 02/07/24 15:31 Last Admin: 02/07/24 16:17 Dose: 50 mcg Pantoprazole Sodium (Protonix/Ns 80mg Iv Premix) 80 mg in 100 mls @ 10 mls/hr IV X1 ONE Stop: 02/08/24 01:29 Last Admin: 02/07/24 16:29 Dose: 10 mls/hr Octreotide Acetate 1,000 mcg/ (Sodium Chloride) 102 mls @ 5.1 mls/hr IV .Q20H CHUYITA; Protocol Stop: 02/08/24 13:44 Last Admin: 02/07/24 18:59 Dose: 50 mcg/hr, 5.1 mls/hr Octreotide Acetate (Octreotide Acet Inj 50 Mcg/Ml Vial) 50 mcg IV X1 ONE Stop: 02/07/24 17:31 Last Admin: 02/07/24 18:49 Dose: 50 mcg Ondansetron HCl (Ondansetron Inj 2 Mg/Ml Inj 2 Ml) 4 mg IV X1 ONE; Protocol Stop: 02/07/24 15:31 Last Admin: 02/07/24 16:18 Dose: 4 mg Pantoprazole Sodium (Pantoprazole Inj 40 Mg Vial) 80 mg IV X1 ONE Stop: 02/07/24 15:31 Last Admin: 02/07/24 16:18 Dose: 80 mg Assessment & Plan Plan 83-year-old female patient with significant medical history for CAD, PE (on Xarelto) DM2, HLD, COPD, HTN, recurrent UTIs and current smoker was brought from [facility] due to weakness and low hemoglobin levels. Patient found to have low hemoglobin requiring transfusions, cardiology consulted due to elevated troponins. #Troponinemia, most likely type II secondary to #Acute GI bleed Patient with history of PE and currently on Xarelto On admission patient complaining of weakness and was found to have hemoglobin of 3.5 Troponins peaked at 2.7 before downtrending EKG negative for ST and T wave changes Patient not complaining of chest pain Plan: ? No need to trend troponin #HTN #DM2 #COPD #Acute GI bleed #PE -Management per primary team This patient care was discussed with attending Dr. Aramis Reza MD PGY-2 Disclaimer: Minor errors in psychometric examiner may be present since this note was dictated by speech recognition software.
[2024-02-08] MEDS: NA SU/NAHCO3/KC/PEG (Golytely) 4,000 ML BTL 4000 ML PO (14:31)
[2024-02-08] MEDS: OCTREOTIDE ACET INJ 1,000 MCG in SODIUM CHLORIDE 0.9% 100 ML 5.1 MCG IV (14:32)
--- NOTE | 2024-02-08 14:45 | ESPR_ITS ---
<Statement entered by Susan Andrea MD - 02/08/24 15:41> Patient was examined bedside this morning, her troponin was elevated up to [address] Self recommended its most likely secondary to demand ischemia we will continue to monitor. EGD was done no source of bleeding was found Dr. Flores is planning to do colonoscopy tomorrow. Continue same management. Will follow-up on vitamin B12 and folate. I discussed with and supervised my co-resident involved in the care of this patient. I agree with the assessment and plan as documented above. Susan Andrea,PGY-3 Disclaimer: Despite multiple revisions, due to the dictation software being used, the document below may not be free of grammatical errors including phonetic/typographic errors. However, this does not deter from our commitment to providing health care in the patient's best interest in mind. Documentation for date of: 02/08/24 Subjective Subjective Interval history: Patient was seen and examined by the bedside. No acute overnight events. Patient continues to be weak, but less somnolent today, reports pain in the middle of the chest and epigastric area. Paleness slightly improved after pRBC transfusion. EGD today did not reveal the source of bleeding, Dr. Flores will proceed with colonoscopy when the patient will be ready. Exam Vital Signs Temp Pulse Resp BP Pulse Ox O2 Del Method O2 Flow Rate 97.0 F 100 22 H 161/93 H 97 Room Air 3 02/08/24 12:00 02/08/24 13:55 02/08/24 13:55 02/08/24 13:55 02/08/24 13:55 02/08/24 12:00 02/08/24 13:55 Narrative Exam General: Awake, general weakness. HEENT: Normocephalic, atraumatic, mucous membranes moist. Heart: Regular rate and rhythm, no murmurs. Tachycardic. Lungs: Clear to auscultation with no wheezing or crackles. Abdomen: Soft, nondistended, diffusely tender, positive bowel sounds. ? Neurologic: Alert and oriented x3, no gross neurological deficit, and patient able to move all 4 extremities. Extremities: No edema. Skin: No rash or ecchymoses. Objective Labs 02/08/24 05:42 02/08/24 05:42 Labs: Laboratory Results - last 24 hr 02/07/24 02/07/24 02/07/24 10:54 11:00 14:49 WBC RBC Hgb Hct MCV MCH MCHC RDW Std Deviation Plt Count Neut % (Auto) Lymph % (Auto) [place] % (Auto) Eos % (Auto) Baso % (Auto) Neut # (Auto) Lymph # (Auto) [place] # (Auto) Eos # (Auto) Baso # (Auto) Immature Gran # (Auto) Absolute Nucleated RBC Immature Gran % Nucleated RBC % Retic Count (auto) 3.3 H Absolute Retic 54.0 Immature Retic Fraction 32.8 H Retic Hgb Content CHr 23.3 L Sodium Potassium Chloride Carbon Dioxide Anion Gap BUN Creatinine Estim Creat Clear Calc eGFR BUN/Creatinine Ratio Glucose Calculated Osmolality Lactic Acid Calcium Corrected Calcium Phosphorus Magnesium Iron 60 TIBC 389 Iron Saturation 15 L Unsat Iron Binding 329 H Total Bilirubin AST ALT Alkaline Phosphatase Troponin I Total Protein Albumin Globulin Albumin/Globulin Ratio Vitamin B12 Folate Procalcitonin Stool Occult Blood Misc Test Result Blood Type A Positive Antibody Screen NEGATIVE Crossmatch See Detail Blood Bank Wristband ID Yes Blood Bank Comment PLATP Ready 02/07/24 02/07/24 02/07/24 15:20 17:00 23:25 WBC RBC Hgb 9.5 L D Hct 28.3 L D MCV MCH MCHC RDW Std Deviation Plt Count Neut % (Auto) Lymph % (Auto) [place] % (Auto) Eos % (Auto) Baso % (Auto) Neut # (Auto) Lymph # (Auto) [place] # (Auto) Eos # (Auto) Baso # (Auto) Immature Gran # (Auto) Absolute Nucleated RBC Immature Gran % Nucleated RBC % Retic Count (auto) Absolute Retic Immature Retic Fraction Retic Hgb Content CHr Sodium Potassium Chloride Carbon Dioxide Anion Gap BUN Creatinine Estim Creat Clear Calc eGFR BUN/Creatinine Ratio Glucose Calculated Osmolality Lactic Acid 1.6 Calcium Corrected Calcium Phosphorus Magnesium Iron TIBC Iron Saturation Unsat Iron Binding Total Bilirubin AST ALT Alkaline Phosphatase Troponin I 1.889 H* D 2.542 H* D Total Protein Albumin Globulin Albumin/Globulin Ratio Vitamin B12 Folate Procalcitonin 0.24 Stool Occult Blood Positive A Misc Test Result Blood Type Antibody Screen Crossmatch Blood Bank Wristband ID Blood Bank Comment 02/08/24 02/08/24 02/08/24 01:44 05:42 12:36 WBC 2.6 L RBC 3.48 L Hgb 10.0 L 9.7 L Hct 30.1 L 29.6 L MCV 85 MCH 27.9 MCHC 32.8 RDW Std Deviation 53.1 H Plt Count 24 L* D Neut % (Auto) 12 L Lymph % (Auto) 49 [place] % (Auto) 39 H Eos % (Auto) 0 Baso % (Auto) 0 Neut # (Auto) 0.3 L Lymph # (Auto) 1.3 [place] # (Auto) 1.0 H Eos # (Auto) 0.0 Baso # (Auto) 0.0 Immature Gran # (Auto) 0.00 Absolute Nucleated RBC 0.06 H Immature Gran % 0 Nucleated RBC % 2 H Retic Count (auto) Absolute Retic Immature Retic Fraction Retic Hgb Content CHr Sodium 144 Potassium 4.1 Chloride 111 H Carbon Dioxide 23.7 Anion Gap 9 BUN 27 H Creatinine 0.5 L Estim Creat Clear Calc 77.0 eGFR > 60 BUN/Creatinine Ratio 54 H Glucose 109 H D Calculated Osmolality 292 Lactic Acid Calcium 8.0 L Corrected Calcium 8.6 Phosphorus 4.0 Magnesium 2.2 Iron TIBC Iron Saturation Unsat Iron Binding Total Bilirubin 1.1 D AST 14 ALT 7 L Alkaline Phosphatase 69 Troponin I 2.721 H* Total Protein 5.4 L Albumin 3.3 L Globulin 2.1 L Albumin/Globulin Ratio 1.6 Vitamin B12 311 Folate 15.33 Procalcitonin Stool Occult Blood Misc Test Result Platelets confirmed Blood Type Antibody Screen Crossmatch Blood Bank Wristband ID Blood Bank Comment Quality Measures Quality Measures VTE prophylaxis Advance care planning discussed with:: patient and child Assessment & Plan Assessment Current Active Medications: Generic Name Dose Route Start Last Admin Trade Name Freq PRN Reason Stop Dose Admin Acetaminophen 650 mg 02/07/24 17:25 Acetaminophen Supp 650 Mg Supp GA 03/08/24 17:24 Q6H PRN Pain Scale 1-3 or fever 100.3 Dextrose 25 ml 02/07/24 19:08 Dextrose 50%-Water Inj 50 Ml Syringe IV 03/08/24 19:07 Q15MIN PRN BG 50-70 responsive npo pt Dextrose 50 ml 02/07/24 19:08 Dextrose 50%-Water Inj 50 Ml Syringe IV 03/08/24 19:07 Q15MIN PRN BG <50 OR BG <70 & pt unresponsive Glucagon 1 mg 02/07/24 19:08 Glucagon Inj 1 Mg Vial IM Q15MIN PRN BG <70, and no IV access Octreotide Acetate 1,000 mcg/ 102 mls @ 5.1 mls/hr 02/08/24 13:45 02/08/24 14:32 Sodium Chloride IV 02/12/24 17:31 50 mcg/hr .Q20H CHUYITA 5.1 mls/hr Administration Protocol 50 MCG/HR Insulin Human Lispro 0 unit 02/07/24 21:00 02/08/24 11:14 Insulin Lispro (Admelog) 1 Unit/0.01 Ml Unit SC 03/08/24 20:59 Not Given ACHS CHUYITA Protocol Nitroglycerin 0.4 mg 02/07/24 19:21 Nitroglycerin 0.4 Mg Subl Btl #25 SL Q5MIN PRN CHEST PAIN Oxycodone/Acetaminophen 1 tab 02/07/24 17:25 02/08/24 07:44 Oxycodone/Apap 5/325 Tablet PO 02/12/24 17:24 1 tab Q6H PRN Administration PAIN SCALE 4-6 (Moderate Pantoprazole Sodium 40 mg 02/08/24 09:00 02/08/24 07:44 Pantoprazole Inj 40 Mg Vial IV 03/09/24 08:59 40 mg BID CHUYITA Administration Sennosides 1 tab 02/07/24 17:25 Senna Tablet PO 03/08/24 17:24 QDAY PRN constipation Protocol Plan The patient is a 83-year-old female with a previous medical history of CAD, type 2 diabetes mellitus, hyperlipidemia, COPD, hypertension, recurrent UTIs who came to the ED from [facility] due to weakness and low hemoglobin level. Son at the bedside, reports that she is looking pale, reports that she has been feeling weak for a long time. #GI bleeding #Acute blood loss anemia Suspected lower GI bleed. Patient has melena, BUN 32. 02/08/2024 EGD showed esophagitis, nonerosive gastritis, no signs of active bleeding. Plan: ?GI consulted, appreciate recommendations - Colonoscopy pending ? Pantoprazole drip ? Octreotide drip discontinued #Neutropenia #Thrombocytopenia #Severe anemia Son at the bedside reported that routine blood work showed severe anemia. Reports that patient looks pale. Reticulocyte count is 3.5%. Iron panel showed low iron saturation, high unsaturated iron binding. Most likely bleeding also contributing to the anemia, but other cell lines suppresion raises concerns for bone marrow dysfunction. Patient might benefit from bone marrow biopsy. Will talk to Dr. Chambers regarding further work-up. 02/08/24 Posttransfusion H&H 9.7 Plan: ? Peripheral blood smear pending ? Neutropenic precautions - Folate and B12 ordered #History of PE Spoke with nurse at the [facility], reports that she's Xarelto, received last dose yesterday at 20:00. Plan: - Xarelto on hold due to GI bleeding. #Elevated troponin I #History of COPD #History of hypotension #History of CAD #Hyperlipidemia Initial EKG showed sinus tachycardia. Repeat EKG showed sinus rhythm Troponin I peaked at 2.721 since the admission and downtrended to 1.984. Cardiology consulted, troponin elevation due to demand ischemia in the setting of severe anemia. Plan: - Anticoagulants on hold for now - Trend troponin I q8hr - Cardiology consult, appreciate recommendations #Type 2 diabetes mellitus Plan: ? Insulin sliding scale Health maintenance: FEN: Clear liquid diet DVT prophylaxis: SCDs GI prophylaxis: Pantoprazole IV Dispo: tele bed CODE STATUS: DNR Plan of care discussed with attending Dr. Lewis and PGY-[address] Andrea. Attending Provider Attestation/Addendum I, Shannen Lewis DO, attest that I was physically present for the francisco portions of the service and evaluated the patient with the resident and I reviewed and discussed the case with the resident and agree with the resident's findings and plans of care as documented above Patient seen and eval this a.m. She reports some epigastric pain. Patient is cleared from cardiology standpoint to undergo endoscopy and suspects type II demand ischemia. Troponin has been downtrending now 1.984. Patient appears less pale today. Will follow-up with endoscopy results.
[2024-02-08 16:32] LABS: Troponin I 1.984 ng/mL (0.0-0.045)
[2024-02-08] MEDS: INSULIN LISPRO (AdmeLOG) 1 UNIT/0.01 ML UNIT SC (17:10)
--- NOTE | 2024-02-08 17:58 | PC.NURSE ---
Son Baljit at bedside educated on patients diet being clear liquid. Patients son was giving her coke, he was educated that coke is not a clear liquid. Pts son then stated that his mother is 80 something years old and can have coke if she wants to . This rn attempted to educate pts son that the doctor has ordered a clear liquid diet because she is on bowel prep for a colonoscopy. Pts son refused to accept any education and stated that he looked up a clear liquid diet online and google said coke was fine.
--- NOTE | 2024-02-08 18:42 | PC.NURSE ---
Called to ask if watered down coke and plain coffee are okay for the patient to have on clear liquid diet and he said that yes she may have either until she goes npo for colonoscopy
[2024-02-09] VITALS: BP 132/73; PULSE 90; PULSE 94; RESP 20; TEMP 36.1; O2SAT 95
[2024-02-09 04:00] VITALS: BP 117/60; PULSE 87; PULSE 88; RESP 18; TEMP 36.1; O2SAT 94
--- NOTE | 2024-02-09 04:10 | PC.NURSE ---
pt pulled NG tube out. DR. Lance was made aware with no new orders for pt at this time.
[2024-02-09 04:14] LABS: Collection Type, Urine Catheter
[2024-02-09 04:30] LABS: Bacteria,Urine 4+; Bilirubin,Urine Negative (Negative); Blood,Urine 3+ (Negative); Color,Urine Yellow (Lt Yel-Yel); Glucose, Urine Negative (Negative); Ketones,Urine 1+ (Negative); Leukocyte Esterase,Urine Positive (Negative); Nitrite,Urine Negative (Negative); PH,Urine 6.5 (5.0-7.0); Protein,Urine 1+ (Neg - Trace); RBC,Urine 29 /hpf (0-3); Specific Gravity,Urine 1.029 (1.001-1.035); Squamous Epithelial Cell,Urine 2 /hpf (0-5); WBC,Urine 28 /hpf (0-5)
[2024-02-09 04:31] LABS: Clarity,Urine Turbid (Clear/Hazy); Culture Indicated,Urine Yes
[2024-02-09 05:35] VITALS: BMI 17.9
[2024-02-09 05:49] LABS: Basophils % (Auto) 0 % (0-2.5); Eosinophils % (Auto) 1 % (0-10); Immature Granulocytes % (Auto) 0 % (0-0); Lymphocytes # (Auto) 1.1 Thou/mm3 (1.0-4.8); Mean Corpuscular HGB Conc 32.8 g/dl (31.0-37.0)
[2024-02-09 05:51] LABS: Hematocrit 27.1 % (36.0-46.0); Hemoglobin 8.9 g/dL (12.0-16.0); Lymphocytes % (Auto) 52 % (10-50); Mean Corpuscular Hemoglobin 27.6 pg (25.0-35.0); Mean Corpuscular Volume 84 fL (80-100); Monocytes # (Auto) 0.8 Thou/mm3 (0.0-0.8); Monocytes % (Auto) 38 % (0-12); Neutrophils # (Auto) 0.2 Thou/mm3 (1.8-7.7); Neutrophils % (Auto) 9 % (37-80); Nucleated Red Blood Cell # 0.05 Thou/mm3 (0.00-0.00); Nucleated Red Blood Cell % 3 /100 WBC (0); RDW Standard Deviation 53.3 fL (36.4-46.3); Red Blood Count 3.23 Miln/mm3 (4.00-5.20)
[2024-02-09 05:57] LABS: Platelet Count 25 Thou/mm3 (140-440)
[2024-02-09 06:00] LABS: Slide Review Platelets confirmed
[2024-02-09 06:48] LABS: Alanine Aminotransferase < 7 U/L (10-49); Albumin/Globulin Ratio 1.6 (1.2-2.2); Alkaline Phosphatase 63 U/L (46-116); Anion Gap 8 (7-16); Aspartate Amino Transferase < 10 U/L (0-34); BUN/Creatinine Ratio 40 Ratio (12-20); Bilirubin,Total 0.7 mg/dL (0.3-1.2); Blood Urea Nitrogen 16 mg/dL (9-23); Calcium 7.6 mg/dL (8.3-10.6); Calcium (Corrected) 8.4 mg/dL (8.5-10.1); Carbon Dioxide 28.1 mMol/L (20.0-31.0); Chloride 109 mMol/L (98-107); Creatinine (Component) 0.4 mg/dL (0.6-1.3); Estimated Creatinine Clearance 83.9 mL/min (>60); Globulin 1.9 gm/dL (2.3-3.5); Glucose 142 mg/dL (74-106); Osmolality,Calculated 291 (275-295); Phosphorous 2.3 mg/dL (2.4-5.1); Sodium 145 mMol/L (136-145); Total Protein 4.9 gm/dL (5.7-8.2); eGFR > 60 See Note
[2024-02-09 06:51] LABS: Potassium 2.7 mMol/L (3.4-5.1)
--- NOTE | 2024-02-09 07:14 | PC.NURSE ---
Pt's potassium 2.7. Unable to get a hold damaso UP.
[2024-02-09] MEDS: oxyCODONE/APAP 5/325 TABLET 1 TAB PO ×2 (07:53→20:34)
[2024-02-09] MEDS: POTASSIUM CHL 10 mEq IVPB 10 MEQ/100 ML BAG 60 MEQ IV ×6 (07:53→17:16)
[2024-02-09 08:00] VITALS: BP 126/69; PULSE 93; PULSE 96; RESP 18; TEMP 36.6; O2SAT 93
--- NOTE | 2024-02-09 08:46 | ESPR_ITS ---
<Statement entered by Susan Andrea MD - 02/09/24 14:44> Patient was examined bedside this morning, she is taking GoLytely for colon prep for colonoscopy today. NG tube was accidentally removed overnight by patient, his son was present at bedside explained him that we are doing him on consultation because all of her cell lines are decreased and she might need bone marrow biopsy. Pending hematology recs. I discussed with and supervised my co-resident involved in the care of this patient. I agree with the assessment and plan as documented above. Susan Andrea,PGY-3 Disclaimer: Despite multiple revisions, due to the dictation software being used, the document below may not be free of grammatical errors including phonetic/typographic errors. However, this does not deter from our commitment to providing health care in the patient's best interest in mind. Documentation for date of: 02/09/24 Subjective Subjective Interval history: Patient was seen and examined by the bedside. No acute overnight events. Patient reports feeling well, conversational, less pale. Was unable to drink GoLytely, had multiple brown bowel movements. Froilan's son tried to encourage drinking GoLytely by adding Cola,it did not help . She had an NG tube placed yesterday, but she took it out. Patient's son declined repeat NG tube placement to avoid causing discomfort. Patient's son declined continuing drinking GoLytely, requested alternatives, agreed to try laxatives and enema. Plan of care was discussed with patient and son and a possibility of further work-up, such as bone biopsy with front of house manager was explained. Patient's son requested procedure to be done with full sedation with anesthesiologist. It was explained to him, that at this point, bone biopsy is not planned, but we can discuss it later.. Hgb 8.9. Denies chest pain, abdominal pain, but mild abdominal tenderness on palpation was appreciated. Colonoscopy pending, will proceed when she will be ready. Will try miralax mixed with gatorade and enema for colonoscopy preparation. Dr. Sigala is consulted, pending recommendation. Exam Vital Signs Temp Pulse Resp BP Pulse Ox O2 Del Method O2 Flow Rate 97.8 F 93 18 126/69 93 L Room Air 3 02/09/24 08:00 02/09/24 08:00 02/09/24 08:00 02/09/24 08:00 02/09/24 08:00 02/09/24 08:00 02/08/24 13:55 Narrative Exam General: Awake, conversational, chronically ill elderly lady. HEENT: Normocephalic, atraumatic, mucous membranes moist. Heart: Regular rate and rhythm, no murmurs. Lungs: Clear to auscultation with no wheezing or crackles. Abdomen: Soft, nondistended, tenderness in the right upper and lower quadrant, positive bowel sounds. ?No guarding or rebound tenderness. Neurologic: Alert and oriented x3, no gross neurological deficit, and patient able to move all 4 extremities. Extremities: No edema. Skin: No rash or ecchymoses. Objective Labs 02/10/24 04:33 02/10/24 04:33 Labs: Laboratory Results - last 24 hr 02/07/24 02/08/24 02/08/24 10:54 12:36 15:32 WBC RBC Hgb Hct MCV MCH MCHC RDW Std Deviation Plt Count Neut % (Auto) Lymph % (Auto) [place] % (Auto) Eos % (Auto) Baso % (Auto) Neut # (Auto) Lymph # (Auto) [place] # (Auto) Eos # (Auto) Baso # (Auto) Immature Gran # (Auto) Absolute Nucleated RBC Immature Gran % Nucleated RBC % Sodium Potassium Chloride Carbon Dioxide Anion Gap BUN Creatinine Estim Creat Clear Calc eGFR BUN/Creatinine Ratio Glucose Calculated Osmolality Calcium Corrected Calcium Phosphorus Magnesium Total Bilirubin AST ALT Alkaline Phosphatase Troponin I 1.984 H* D Total Protein Albumin Globulin Albumin/Globulin Ratio Vitamin B12 311 Folate 15.33 Ur Collection Type Urine Color Urine Clarity Urine pH Ur Specific [place] Urine Protein Urine Glucose (UA) Urine Ketones Urine Blood Urine Nitrite Urine Bilirubin Urine Urobilinogen (Auto) Ur Leukocyte Esterase Urine RBC Urine WBC Ur Squamous Epith Cells Urine Bacteria Ur Culture Indicated? Misc Test Result Blood Type A Positive Antibody Screen NEGATIVE Crossmatch See Detail Blood Bank Wristband ID Yes Blood Bank Comment PLATP Ready 02/09/24 02/09/24 04:05 04:42 WBC 2.0 L RBC 3.23 L Hgb 8.9 L Hct 27.1 L MCV 84 MCH 27.6 MCHC 32.8 RDW Std Deviation 53.3 H Plt Count 25 L* Neut % (Auto) 9 L Lymph % (Auto) 52 H [place] % (Auto) 38 H Eos % (Auto) 1 Baso % (Auto) 0 Neut # (Auto) 0.2 L Lymph # (Auto) 1.1 [place] # (Auto) 0.8 Eos # (Auto) 0.0 Baso # (Auto) 0.0 Immature Gran # (Auto) 0.00 Absolute Nucleated RBC 0.05 H Immature Gran % 0 Nucleated RBC % 3 H Sodium 145 Potassium 2.7 L* D Chloride 109 H Carbon Dioxide 28.1 Anion Gap 8 BUN 16 Creatinine 0.4 L Estim Creat Clear Calc 83.9 eGFR > 60 BUN/Creatinine Ratio 40 H Glucose 142 H Calculated Osmolality 291 Calcium 7.6 L Corrected Calcium 8.4 L Phosphorus 2.3 L Magnesium 2.0 Total Bilirubin 0.7 AST < 10 ALT < 7 L Alkaline Phosphatase 63 Troponin I Total Protein 4.9 L Albumin 3.0 L Globulin 1.9 L Albumin/Globulin Ratio 1.6 Vitamin B12 Folate Ur Collection Type Catheter Urine Color Yellow Urine Clarity Turbid A Urine pH 6.5 Ur Specific [place] 1.029 Urine Protein 1+ A Urine Glucose (UA) Negative Urine Ketones 1+ A Urine Blood 3+ A Urine Nitrite Negative Urine Bilirubin Negative Urine Urobilinogen (Auto) 2.0 Ur Leukocyte Esterase Positive Urine RBC 29 H Urine WBC 28 H Ur Squamous Epith Cells 2 Urine Bacteria 4+ A Ur Culture Indicated? Yes Misc Test Result Platelets confirmed Blood Type Antibody Screen Crossmatch Blood Bank Wristband ID Blood Bank Comment Quality Measures Quality Measures VTE prophylaxis Advance care planning discussed with:: patient and child Assessment & Plan Assessment Current Active Medications: Generic Name Dose Route Start Last Admin Trade Name Freq PRN Reason Stop Dose Admin Acetaminophen 650 mg 02/07/24 17:25 Acetaminophen Supp 650 Mg Supp OK 03/08/24 17:24 Q6H PRN Pain Scale 1-3 or fever 100.3 Dextrose 25 ml 02/07/24 19:08 Dextrose 50%-Water Inj 50 Ml Syringe IV 03/08/24 19:07 Q15MIN PRN BG 50-70 responsive npo pt Dextrose 50 ml 02/07/24 19:08 Dextrose 50%-Water Inj 50 Ml Syringe IV 03/08/24 19:07 Q15MIN PRN BG <50 OR BG <70 & pt unresponsive Glucagon 1 mg 02/07/24 19:08 Glucagon Inj 1 Mg Vial IM Q15MIN PRN BG <70, and no IV access Potassium Chloride 10 meq in 100 mls @ 100 mls/hr 02/09/24 07:24 02/09/24 07:53 Kcl Ivpb IV 02/09/24 11:23 60 mls/hr Q1H CHUYITA Administration Insulin Human Lispro 0 unit 02/07/24 21:00 02/09/24 07:47 Insulin Lispro (Admelog) 1 Unit/0.01 Ml Unit SC 03/08/24 20:59 Not Given ACHS CHUYITA Protocol Nitroglycerin 0.4 mg 02/07/24 19:21 Nitroglycerin 0.4 Mg Subl Btl #25 SL Q5MIN PRN CHEST PAIN Oxycodone/Acetaminophen 1 tab 02/07/24 17:25 02/09/24 07:53 Oxycodone/Apap 5/325 Tablet PO 02/12/24 17:24 1 tab Q6H PRN Administration PAIN SCALE 4-6 (Moderate Pantoprazole Sodium 40 mg 02/08/24 09:00 02/08/24 21:00 Pantoprazole Inj 40 Mg Vial IV 03/09/24 08:59 40 mg BID CHUYITA Administration Sennosides 1 tab 02/07/24 17:25 Senna Tablet PO 03/08/24 17:24 QDAY PRN constipation Protocol Plan The patient is a 83-year-old female with a previous medical history of CAD, type 2 diabetes mellitus, hyperlipidemia, COPD, hypertension, recurrent UTIs who came to the ED from [facility] due to weakness and low hemoglobin level. Son at the bedside, reports that she is looking pale, reports that she has been feeling weak for a long time. #GI bleeding #Acute blood loss anemia #Hypokalemia Suspected lower GI bleed. Patient has melena, BUN 32. 02/08/2024 EGD showed esophagitis, nonerosive gastritis, no signs of active bleeding. Unable to drink GoLytely 02/09/24: Potassium 2.7. 40mEq of K+ was given, will give another 20 mEq. Plan: ?GI consulted, appreciate recommendations - Colonoscopy pending ? Pantoprazole 40 mg BID - Potassium 40 mEq IV given, will give 20 mEq additionally - Potassium check - Monitor CBC, CMP - Transfuse if Hgb <7 #Neutropenia #Thrombocytopenia #Severe anemia Son at the bedside reported that routine blood work showed severe anemia. Reports that patient looks pale. Reticulocyte count is 3.5%. Iron panel showed low iron saturation, high unsaturated iron binding. Most likely bleeding also contributing to the anemia, but other cell lines suppresion raises concerns for bone marrow dysfunction. Patient might benefit from bone marrow biopsy. Will talk to Dr. Chambers regarding further work-up. 02/08/24 Posttransfusion H&H 9.7 Plan: ? Peripheral blood smear pending ? Neutropenic precautions - Folate and B12 ordered - Monitor CBC, CMP - Transfuse if Hgb <7 #History of PE Spoke with nurse at the [facility], reports that she's Xarelto, received last dose 02/06/24 at 20:00. Plan: - Xarelto on hold due to GI bleeding. #Elevated troponin I #History of COPD #History of hypotension #History of CAD #Hyperlipidemia Initial EKG showed sinus tachycardia. Repeat EKG showed sinus rhythm Troponin I peaked at 2.721 since the admission and downtrended to 1.984. Cardiology consulted, troponin elevation due to demand ischemia in the setting of severe anemia. Plan: - Anticoagulants on hold for now - Trend troponin I q8hr - Cardiology consult, appreciate recommendations #Type 2 diabetes mellitus Plan: ? Insulin sliding scale Health maintenance: FEN: Clear liquid diet DVT prophylaxis: SCDs GI prophylaxis: Pantoprazole IV Dispo: tele bed CODE STATUS: DNR Plan of care discussed with attending Dr. Lewis and PGY-[address] Andrea. Attending Provider Attestation/Addendum Carlyle, Shannen Lewis, , attest that I was physically present for the francisco portions of the service and evaluated the patient with the resident and I reviewed and discussed the case with the resident and agree with the resident's findings and plans of care as documented above Patient seen and eval this a.m. Patient underwent endoscopy during which she was found to have esophagitis, nonerosive gastritis. An NG tube was placed to start GoLytely. However, patient removed NG tube overnight. Son is at bedside encouraging patient to drink her GoLytely and has diluted in Coca-Cola. When asked to switch out to Sprite and something clear, son was very adamant that the patient would not drink the solution without coffee or Coca-Cola. Discussed findings on CBC with patient's son regarding pancytopenia and possible need for bone marrow biopsy. Patient's son asked if the patient can be fully sedated if she were to undergo the procedure. He also refused for patient to have another NG tube placed and has been encouraging his mother to drink the GoLytely. He asked for alternative for her to drink another laxative and received an enema. Explained that changing the laxative would not be the solution if she needs to consume it nevertheless. Will order an enema try MiraLAX as he feels that the patient is unable to drink the GoLytely itself. Will also consult hematology as well. Pending peripheral smear at this time. Hemoglobin has otherwise been stable. Platelet count remains in the 20s and patient has scattered ecchymosis on her upper extremities due to low platelet count.
[2024-02-09] MEDS: PANTOPRAZOLE INJ 40 MG VIAL IV ×2 (09:29→20:34)
--- NOTE | 2024-02-09 09:41 | PC.SS ---
Patient Radha Cornell is a 83 Year old female admitted for GI Bleed. SS contacted patient's son, Baljit Davis via phone in order to complete initial assessment. Patient's son reports patient has been at [facility] for 5 Years and is a nursing home resident. Baljit is patient's surrogate decision maker [phone]. Patient is alert and oriented, however needs assistance completing all ADL's. Patient is bed bound. Baljit reports there is an Advance Directive in place. At time of discharge patient will return back to [facility]. Next of Kin: Son, Baljit Davis [phone] Discharge Plan; [facility]
[2024-02-09 12:00] VITALS: BP 142/74; PULSE 87; PULSE 90; RESP 19; TEMP 36.2; O2SAT 96
[2024-02-09 13:34] VITALS: BMI 22.7
--- NOTE | 2024-02-09 14:07 | PCS.ST ---
Rounding note; Patient will have a colonoscopy today.
[2024-02-09] MEDS: POLYETHYLENE GLYCOL 17 GM PACKET 238 GM PO (14:16)
[2024-02-09 16:00] VITALS: BP 120/76; PULSE 90; PULSE 91; RESP 18; TEMP 36.3; O2SAT 94
[2024-02-09 16:39] LABS: Potassium 3.3 mMol/L (3.4-5.1)
--- NOTE | 2024-02-09 16:50 | ESPR_ITS ---
Documentation for date of: 02/09/24 Subjective Subjective Interval history: Patient was scheduled for colonoscopy she is not clear colonoscopy postponed to tomorrow I spoke with the son and he is pushing with the GoLytely NGT was pulled out by the patient which I placed in yesterday Continue to work on clean the colon Colonoscopy planned Exam Vital Signs Temp Pulse Resp BP Pulse Ox O2 Del Method O2 Flow Rate 97.3 F 90 18 120/76 94 L Room Air 3 02/09/24 16:00 02/09/24 16:00 02/09/24 16:00 02/09/24 16:00 02/09/24 16:00 02/09/24 16:00 02/08/24 13:55 Routine Respiratory Exam Comments: Normal to auscultation Routine Abdominal Exam Comments: Soft nontender Objective Labs 02/09/24 04:42 02/09/24 15:33 Labs: Laboratory Results - last 24 hr 02/07/24 02/09/24 02/09/24 10:54 04:05 04:42 WBC 2.0 L RBC 3.23 L Hgb 8.9 L Hct 27.1 L MCV 84 MCH 27.6 MCHC 32.8 RDW Std Deviation 53.3 H Plt Count 25 L* Neut % (Auto) 9 L Lymph % (Auto) 52 H [place] % (Auto) 38 H Eos % (Auto) 1 Baso % (Auto) 0 Neut # (Auto) 0.2 L Lymph # (Auto) 1.1 [place] # (Auto) 0.8 Eos # (Auto) 0.0 Baso # (Auto) 0.0 Immature Gran # (Auto) 0.00 Absolute Nucleated RBC 0.05 H Immature Gran % 0 Nucleated RBC % 3 H Sodium 145 Potassium 2.7 L* D Chloride 109 H Carbon Dioxide 28.1 Anion Gap 8 BUN 16 Creatinine 0.4 L Estim Creat Clear Calc 83.9 eGFR > 60 BUN/Creatinine Ratio 40 H Glucose 142 H Calculated Osmolality 291 Calcium 7.6 L Corrected Calcium 8.4 L Phosphorus 2.3 L Magnesium 2.0 Total Bilirubin 0.7 AST < 10 ALT < 7 L Alkaline Phosphatase 63 Total Protein 4.9 L Albumin 3.0 L Globulin 1.9 L Albumin/Globulin Ratio 1.6 Ur Collection Type Catheter Urine Color Yellow Urine Clarity Turbid A Urine pH 6.5 Ur Specific [place] 1.029 Urine Protein 1+ A Urine Glucose (UA) Negative Urine Ketones 1+ A Urine Blood 3+ A Urine Nitrite Negative Urine Bilirubin Negative Urine Urobilinogen (Auto) 2.0 Ur Leukocyte Esterase Positive Urine RBC 29 H Urine WBC 28 H Ur Squamous Epith Cells 2 Urine Bacteria 4+ A Ur Culture Indicated? Yes Misc Test Result Platelets confirmed Blood Type A Positive Antibody Screen NEGATIVE Crossmatch See Detail Blood Bank Wristband ID Yes Blood Bank Comment PLATP Ready 02/09/24 15:33 WBC RBC Hgb Hct MCV MCH MCHC RDW Std Deviation Plt Count Neut % (Auto) Lymph % (Auto) [place] % (Auto) Eos % (Auto) Baso % (Auto) Neut # (Auto) Lymph # (Auto) [place] # (Auto) Eos # (Auto) Baso # (Auto) Immature Gran # (Auto) Absolute Nucleated RBC Immature Gran % Nucleated RBC % Sodium Potassium 3.3 L D Chloride Carbon Dioxide Anion Gap BUN Creatinine Estim Creat Clear Calc eGFR BUN/Creatinine Ratio Glucose Calculated Osmolality Calcium Corrected Calcium Phosphorus Magnesium Total Bilirubin AST ALT Alkaline Phosphatase Total Protein Albumin Globulin Albumin/Globulin Ratio Ur Collection Type Urine Color Urine Clarity Urine pH Ur Specific [place] Urine Protein Urine Glucose (UA) Urine Ketones Urine Blood Urine Nitrite Urine Bilirubin Urine Urobilinogen (Auto) Ur Leukocyte Esterase Urine RBC Urine WBC Ur Squamous Epith Cells Urine Bacteria Ur Culture Indicated? Misc Test Result Blood Type Antibody Screen Crossmatch Blood Bank Wristband ID Blood Bank Comment Impressions Impression: # Acute posthemorrhagic anemia colonoscopy prep in progress Assessment & Plan A&P Narrative # Pancytopenia with leukopenia and thrombocytopenia Patient may have an underlying hematological disorder due to bone marrow suppression In addition she may have occult GI bleeding Suggestions complete iron panel B12 folate level Hematology consultation for possible bone marrow biopsy and aspirate Complete GI workup with initial upper endoscopy and if there is negative for fiberoptic colonoscopy after GoLytely prep to also evaluate the thickening of the rectal wall as evidenced by CT scan imaging of the abdomen pelvis without contrast Agree with the blood transfusion Other medical problems include # Coronary artery disease with elevated troponin most likely due to underlying low hemoglobin hematocrit and demand ischemia # COPD # Hypothyroidism # Hyperlipidemia # UTI Thank you very much for the opportunity to participate in the care of this patient Time Spent With Patient Time: Total time spent is greater than 50% in coordination of care (as documented) at patient's floor/unit and/or counseling patient:
--- NOTE | 2024-02-09 18:56 | PD.RESPRO ---
Documentation for date of: 02/09/24 Exam Vital Signs Temp Pulse Resp BP Pulse Ox O2 Del Method O2 Flow Rate 97.3 F 90 18 120/76 94 L Room Air 3 02/09/24 16:00 02/09/24 16:00 02/09/24 16:00 02/09/24 16:00 02/09/24 16:00 02/09/24 16:00 02/08/24 13:55 Objective Labs 02/09/24 04:42 02/09/24 15:33 Labs: Laboratory Results - last 24 hr 02/07/24 02/09/24 02/09/24 10:54 04:05 04:42 WBC 2.0 L RBC 3.23 L Hgb 8.9 L Hct 27.1 L MCV 84 MCH 27.6 MCHC 32.8 RDW Std Deviation 53.3 H Plt Count 25 L* Neut % (Auto) 9 L Lymph % (Auto) 52 H [place] % (Auto) 38 H Eos % (Auto) 1 Baso % (Auto) 0 Neut # (Auto) 0.2 L Lymph # (Auto) 1.1 [place] # (Auto) 0.8 Eos # (Auto) 0.0 Baso # (Auto) 0.0 Immature Gran # (Auto) 0.00 Absolute Nucleated RBC 0.05 H Immature Gran % 0 Nucleated RBC % 3 H Sodium 145 Potassium 2.7 L* D Chloride 109 H Carbon Dioxide 28.1 Anion Gap 8 BUN 16 Creatinine 0.4 L Estim Creat Clear Calc 83.9 eGFR > 60 BUN/Creatinine Ratio 40 H Glucose 142 H Calculated Osmolality 291 Calcium 7.6 L Corrected Calcium 8.4 L Phosphorus 2.3 L Magnesium 2.0 Total Bilirubin 0.7 AST < 10 ALT < 7 L Alkaline Phosphatase 63 Total Protein 4.9 L Albumin 3.0 L Globulin 1.9 L Albumin/Globulin Ratio 1.6 Ur Collection Type Catheter Urine Color Yellow Urine Clarity Turbid A Urine pH 6.5 Ur Specific [place] 1.029 Urine Protein 1+ A Urine Glucose (UA) Negative Urine Ketones 1+ A Urine Blood 3+ A Urine Nitrite Negative Urine Bilirubin Negative Urine Urobilinogen (Auto) 2.0 Ur Leukocyte Esterase Positive Urine RBC 29 H Urine WBC 28 H Ur Squamous Epith Cells 2 Urine Bacteria 4+ A Ur Culture Indicated? Yes Misc Test Result Platelets confirmed Blood Type A Positive Antibody Screen NEGATIVE Crossmatch See Detail Blood Bank Wristband ID Yes Blood Bank Comment PLATP Ready 02/09/24 15:33 WBC RBC Hgb Hct MCV MCH MCHC RDW Std Deviation Plt Count Neut % (Auto) Lymph % (Auto) [place] % (Auto) Eos % (Auto) Baso % (Auto) Neut # (Auto) Lymph # (Auto) [place] # (Auto) Eos # (Auto) Baso # (Auto) Immature Gran # (Auto) Absolute Nucleated RBC Immature Gran % Nucleated RBC % Sodium Potassium 3.3 L D Chloride Carbon Dioxide Anion Gap BUN Creatinine Estim Creat Clear Calc eGFR BUN/Creatinine Ratio Glucose Calculated Osmolality Calcium Corrected Calcium Phosphorus Magnesium Total Bilirubin AST ALT Alkaline Phosphatase Total Protein Albumin Globulin Albumin/Globulin Ratio Ur Collection Type Urine Color Urine Clarity Urine pH Ur Specific [place] Urine Protein Urine Glucose (UA) Urine Ketones Urine Blood Urine Nitrite Urine Bilirubin Urine Urobilinogen (Auto) Ur Leukocyte Esterase Urine RBC Urine WBC Ur Squamous Epith Cells Urine Bacteria Ur Culture Indicated? Misc Test Result Blood Type Antibody Screen Crossmatch Blood Bank Wristband ID Blood Bank Comment Quality Measures Quality Measures VTE prophylaxis Assessment & Plan Assessment Current Active Medications: Generic Name Dose Route Start Last Admin Trade Name Freq PRN Reason Stop Dose Admin Acetaminophen 650 mg 02/07/24 17:25 Acetaminophen Supp 650 Mg Supp ND 03/08/24 17:24 Q6H PRN Pain Scale 1-3 or fever 100.3 Dextrose 25 ml 02/07/24 19:08 Dextrose 50%-Water Inj 50 Ml Syringe IV 03/08/24 19:07 Q15MIN PRN BG 50-70 responsive npo pt Dextrose 50 ml 02/07/24 19:08 Dextrose 50%-Water Inj 50 Ml Syringe IV 03/08/24 19:07 Q15MIN PRN BG <50 OR BG <70 & pt unresponsive Glucagon 1 mg 02/07/24 19:08 Glucagon Inj 1 Mg Vial IM Q15MIN PRN BG <70, and no IV access Insulin Human Lispro 0 unit 02/07/24 21:00 02/09/24 17:32 Insulin Lispro (Admelog) 1 Unit/0.01 Ml Unit SC 03/08/24 20:59 Not Given ACHS CHUYITA Protocol Nitroglycerin 0.4 mg 02/07/24 19:21 Nitroglycerin 0.4 Mg Subl Btl #25 SL Q5MIN PRN CHEST PAIN Oxycodone/Acetaminophen 1 tab 02/07/24 17:25 02/09/24 07:53 Oxycodone/Apap 5/325 Tablet PO 02/12/24 17:24 1 tab Q6H PRN Administration PAIN SCALE 4-6 (Moderate Pantoprazole Sodium 40 mg 02/08/24 09:00 02/09/24 09:29 Pantoprazole Inj 40 Mg Vial IV 03/09/24 08:59 40 mg BID CHUYITA Administration Sennosides 1 tab 02/07/24 17:25 Senna Tablet PO 03/08/24 17:24 QDAY PRN constipation Protocol
[2024-02-09 19:20] LABS: Potassium 3.5 mMol/L (3.4-5.1)
[2024-02-09 20:00] VITALS: BP 148/77; PULSE 87; PULSE 95; RESP 17; TEMP 36.2; O2SAT 97
[2024-02-10] VITALS (9 sets, daily range): BP systolic 105–149; BP diastolic 56–86; PULSE 73–107; RESP 18–19; TEMP 36.1–36.7; O2SAT 97–99
[2024-02-10 05:58] LABS: Basophils % (Auto) 0 % (0-2.5); Eosinophils % (Auto) 1 % (0-10); Hematocrit 28.7 % (36.0-46.0); Hemoglobin 9.5 g/dL (12.0-16.0); Immature Granulocytes % (Auto) 0 % (0-0); Lymphocytes # (Auto) 1.3 Thou/mm3 (1.0-4.8); Lymphocytes % (Auto) 49 % (10-50); Mean Corpuscular HGB Conc 33.1 g/dl (31.0-37.0); Mean Corpuscular Hemoglobin 28.1 pg (25.0-35.0); Mean Corpuscular Volume 85 fL (80-100); Monocytes % (Auto) 38 % (0-12); Neutrophils # (Auto) 0.3 Thou/mm3 (1.8-7.7); Neutrophils % (Auto) 12 % (37-80); Nucleated Red Blood Cell # 0.06 Thou/mm3 (0.00-0.00); Nucleated Red Blood Cell % 2 /100 WBC (0); RDW Standard Deviation 52.7 fL (36.4-46.3); Red Blood Count 3.38 Miln/mm3 (4.00-5.20)
[2024-02-10 06:03] LABS: White Blood Count 2.7 Thou/mm3 (3.6-11.0)
[2024-02-10 06:04] LABS: Platelet Count 26 Thou/mm3 (140-440)
[2024-02-10 07:17] LABS: Alanine Aminotransferase < 7 U/L (10-49); Albumin/Globulin Ratio 1.5 (1.2-2.2); Alkaline Phosphatase 68 U/L (46-116); Anion Gap 6 (7-16); Aspartate Amino Transferase < 10 U/L (0-34); BUN/Creatinine Ratio 18 Ratio (12-20); Bilirubin,Total 0.9 mg/dL (0.3-1.2); Blood Urea Nitrogen 7 mg/dL (9-23); Calcium 7.5 mg/dL (8.3-10.6); Calcium (Corrected) 8.3 mg/dL (8.5-10.1); Carbon Dioxide 25.9 mMol/L (20.0-31.0); Chloride 105 mMol/L (98-107); Creatinine (Component) 0.4 mg/dL (0.6-1.3); Glucose 108 mg/dL (74-106); Magnesium 1.7 mg/dL (1.6-2.6); Osmolality,Calculated 272 (275-295); Phosphorous 1.7 mg/dL (2.4-5.1); Sodium 137 mMol/L (136-145); eGFR > 60 See Note
--- NOTE | 2024-02-10 08:02 | ESPR_ITS ---
<Statement entered by Navin Hernandez MD - 02/10/24 15:35> Patient was seen and examined at the bedside. Patient's son was present at the bedside. 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 Family was updated and they wanted to pursue with colonoscopy first for now and patient wanted to proceed with chemotherapy but we will perform another goals of care discussion by tomorrow. Patient is currently receiving enema and GoLytely with suppository to get clear for colonoscopy. Oncologist recommended to consider discussing with patient's family regarding active management for AL if required. Labs are consistent with pancytopenia WBC 2.7 hemoglobin 9.5 and platelet 26. Potassium and phosphorus was repleted. Blood pressure remained stable. Will follow-up with GI recommendations and colonoscopy. All labs and orders were reviewed. I saw and examined the patient, and I agree with current management stated by Dr Rosales MD,PGY1. Plan of care was discussed with the attending physician and resident physician. Disclaimer: Despite multiple revisions, due to the dictation software being used, the document bellow may not be free of grammatical errors including phonetic/typographic errors. However, this does not deter from our commitment to providing health care in the patient's best interest in mind. Dr. Mary MD, PGY 2 Documentation for date of: 02/10/24 Subjective Subjective Interval history: Patient was seen and examined at bedside this AM. Son, Baljit present at bedside No acute exents overnight. Patient tolerating diet, adequate urine output and mentation is at baseline. Patient endorses improvement of weakness. She is asking for a cookie. Hb 9.5, HCT 29.7. WBC 2.7, PLT 26 K3, Ca 8.3, Phos 1.7, Mg 1.7. Patient repleted with magnesium sulfate 2 g IV x 1, Neutra-Phos 1 packet x 1, calcium carbonate 600 Mg p.o., KCl 80 meq po x 1 Peripheral blood smear completed on 02/07/2024 findings include: Atypical blast apparent cells are present, at least 40%, consistent with acute leukemia. Flow cytometry of the peripheral blood is recommended for confirmation. Background severe pancytopenia. Dr Sigala, heme oncologist, consulted and is closely following the case. Appreciate recommendations. Dr. Flores, artist suspect consulted and is closely following the case. Appreciate recommendations. Exam Vital Signs Temp Pulse Resp BP Pulse Ox O2 Del Method O2 Flow Rate 97.2 F 94 18 134/68 H 97 Room Air 3 02/10/24 07:41 02/10/24 07:41 02/10/24 07:41 02/10/24 07:41 02/10/24 07:41 02/10/24 07:41 02/08/24 13:55 Narrative Exam General: Awake, conversational, chronically ill elderly lady. HEENT: Normocephalic, atraumatic, mucous membranes moist. Heart: Regular rate and rhythm, no murmurs. Lungs: Clear to auscultation with no wheezing or crackles. Abdomen: Soft, nondistended, tenderness in the right upper and lower quadrant, positive bowel sounds. ?No guarding or rebound tenderness. Neurologic: Alert and oriented x3, no gross neurological deficit, and patient able to move all 4 extremities. Extremities: No edema. Skin: No rash severe ecchymosis of dorsal surfaces of both hands. Objective Labs 02/11/24 04:53 02/11/24 04:53 Labs: Laboratory Results - last 24 hr 02/07/24 02/09/24 02/09/24 10:54 15:33 18:50 WBC RBC Hgb Hct MCV MCH MCHC RDW Std Deviation Plt Count Neut % (Auto) Lymph % (Auto) [place] % (Auto) Eos % (Auto) Baso % (Auto) Neut # (Auto) Lymph # (Auto) [place] # (Auto) Eos # (Auto) Baso # (Auto) Immature Gran # (Auto) Absolute Nucleated RBC Immature Gran % Nucleated RBC % Sodium Potassium 3.3 L D 3.5 Chloride Carbon Dioxide Anion Gap BUN Creatinine Estim Creat Clear Calc eGFR BUN/Creatinine Ratio Glucose Calculated Osmolality Calcium Corrected Calcium Phosphorus Magnesium Total Bilirubin AST ALT Alkaline Phosphatase Total Protein Albumin Globulin Albumin/Globulin Ratio Blood Type A Positive Antibody Screen NEGATIVE Crossmatch See Detail Blood Bank Wristband ID Yes Blood Bank Comment PLATP Ready 02/10/24 04:33 WBC 2.7 L RBC 3.38 L Hgb 9.5 L Hct 28.7 L MCV 85 MCH 28.1 MCHC 33.1 RDW Std Deviation 52.7 H Plt Count 26 L* Neut % (Auto) 12 L Lymph % (Auto) 49 [place] % (Auto) 38 H Eos % (Auto) 1 Baso % (Auto) 0 Neut # (Auto) 0.3 L Lymph # (Auto) 1.3 [place] # (Auto) 1.0 H Eos # (Auto) 0.0 Baso # (Auto) 0.0 Immature Gran # (Auto) 0.00 Absolute Nucleated RBC 0.06 H Immature Gran % 0 Nucleated RBC % 2 H Sodium 137 Potassium 3.0 L D Chloride 105 Carbon Dioxide 25.9 Anion Gap 6 L BUN 7 L Creatinine 0.4 L Estim Creat Clear Calc 85.0 eGFR > 60 BUN/Creatinine Ratio 18 Glucose 108 H Calculated Osmolality 272 L Calcium 7.5 L Corrected Calcium 8.3 L Phosphorus 1.7 L Magnesium 1.7 Total Bilirubin 0.9 AST < 10 ALT < 7 L Alkaline Phosphatase 68 Total Protein 5.0 L Albumin 3.0 L Globulin 2.0 L Albumin/Globulin Ratio 1.5 Blood Type Antibody Screen Crossmatch Blood Bank Wristband ID Blood Bank Comment Quality Measures Quality Measures VTE prophylaxis Advance care planning discussed with:: patient and child (Son, Baljit.) Assessment & Plan Assessment Current Active Medications: Generic Name Dose Route Start Last Admin Trade Name Freq PRN Reason Stop Dose Admin Acetaminophen 650 mg 02/07/24 17:25 Acetaminophen Supp 650 Mg Supp PA 03/08/24 17:24 Q6H PRN Pain Scale 1-3 or fever 100.3 Calcium Carbonate 600 mg 02/10/24 09:00 Calcium Carbonate 600 Mg Tablet PO 03/11/24 08:59 QDAY CHUYITA Dextrose 25 ml 02/07/24 19:08 Dextrose 50%-Water Inj 50 Ml Syringe IV 03/08/24 19:07 Q15MIN PRN BG 50-70 responsive npo pt Dextrose 50 ml 02/07/24 19:08 Dextrose 50%-Water Inj 50 Ml Syringe IV 03/08/24 19:07 Q15MIN PRN BG <50 OR BG <70 & pt unresponsive Glucagon 1 mg 02/07/24 19:08 Glucagon Inj 1 Mg Vial IM Q15MIN PRN BG <70, and no IV access Magnesium Sulfate 2 gm in 50 mls @ 25 mls/hr 02/10/24 07:44 Magnesium Sulfate Ivpb IV 02/10/24 09:43 X1 ONE Insulin Human Lispro 0 unit 02/07/24 21:00 02/10/24 07:17 Insulin Lispro (Admelog) 1 Unit/0.01 Ml Unit SC 03/08/24 20:59 Not Given ACHS [facility] Protocol Nitroglycerin 0.4 mg 02/07/24 19:21 Nitroglycerin 0.4 Mg Subl Btl #25 SL Q5MIN PRN CHEST PAIN Oxycodone/Acetaminophen 1 tab 02/07/24 17:25 02/09/24 20:34 Oxycodone/Apap 5/325 Tablet PO 02/12/24 17:24 1 tab Q6H PRN Administration PAIN SCALE 4-6 (Moderate Pantoprazole Sodium 40 mg 02/08/24 09:00 02/09/24 20:34 Pantoprazole Inj 40 Mg Vial IV 03/09/24 08:59 40 mg BID CHUYITA Administration Potassium Chloride 40 meq 02/10/24 09:00 Potassium Chloride 20 Meq Tabcr PO 02/10/24 09:01 X1 ONE Sennosides 1 tab 02/07/24 17:25 Senna Tablet PO 03/08/24 17:24 QDAY PRN constipation Protocol Plan Ms. Cornell is an 83-year-old female with a past medical history of coronary artery disease, [id number] diabetes mellitus type 2, hyperlipidemia, COPD, essential hypertension and recurrent UTIs who presented to the ED from [facility] with a chief complaint of weakness. Patient was admitted for acute blood loss anemia for investigation. 1. Acute blood loss anemia 2. GI bleed for investigation On admission patient's Hb 3.8. No previous results available for comparison After 3 units PRBC Hb normal 9.5, HCT 28.7 Stool for occult blood was positive EGD completed on 02/08/[address] Flores findings include: Esophagitis, nonerosive gastritis characterized by erythema. Normal second portion of duodenum. Hiatal hernia, Z-line 32 cm from point of entry. No biopsies taken due to GI bleed and posthemorrhagic anemia. Plan: ? Clear liquid diet ? Glycerin suppository ? Patient unable to tolerate GoLytely, she is being administered MiraLAX by her son mixed with Dr. De La O. ? Tapwater enema x 3 if patient still not clear. - For colonoscopy once adequate bowel prep ? GI, Dr. Flores consulted and is closely following the case. Appreciate recommendations. 3. Pancytopenia 4. Neutropenia 5. Possible acute leukemia On admission Hb 3.8, WBC 2, PLT 35 Currently Hb 9.5, WBC 2.7, PLT 26 ANC 400 Peripheral blood smear completed on 02/07/2024 findings include: Atypical blast apparent cells are present, at least 40%, consistent with acute leukemia. Flow cytometry of the peripheral blood is recommended for confirmation. Background severe pancytopenia. Dr. Sigala, [facility] oncologist consulted and is closely following the case. Appreciate recommendations. He recommended to or for the patient and his son the option of transfer to a tertiary center for initiation of chemotherapy. However he also stated that given patient's advanced age she is likely to not tolerate chemotherapy without adverse effects. Dr. Sigala's recommendations were discussed in detail with son, Baljit and patient. They decided to not pursue any further treatment or workup for her leukemia except for the flow cytometry which was already ordered. Plan: ? Flow cytometry ordered 6. History of pulmonary embolism Spoke with nurse at the [facility], reports that she's Xarelto, received last dose 02/06/24 at 20:00. Plan: -Continue to hold Xarelto due to pancytopenia 7. Coronary artery disease 8. Essential hypertension 9. Hyperlipidemia 10. NSTEMI type I versus type II, likely type II On admission patient complained of generalized weakness. Denies chest pain/pressure or palpitations. Troponin initially elevated at 2.721 and down trended to 1.94 EKG showed sinus tachycardia. No acute ST changes. Cardiology Dr. Mark Self consulted and is closely following the case. He recommended no need to further trend troponin and NSTEMI likely type II due to severe anemia. 11. COPD 12. Esz-czseizu-uqtkfajcq diabetes mellitus type 2 Awaiting medication reconciliation for home meds. Plan: ? DuoNebs as needed if any SOB or wheeze ? Insulin sliding scale to cover any glucose spikes Health maintenance: Disposition: Pending Colonoscopy. Pending Flow cytometry Diet: Clear liquid Lines: pIVs GI Prophylaxis: Protonix 40 mg IV BID Thrombo Prophylaxis: SCDs Code status: DNR Plan of care discussed with Attending Dr. Lewis and PGY2 Dr. Mary Caba MD PGY 1 Attending Provider Attestation/Addendum Carlyle, Shannen Lewis, DO, attest that I was physically present for the francisco portions of the service and evaluated the patient with the resident and I reviewed and discussed the case with the resident and agree with the resident's findings and plans of care as documented above Patient seen and evaluated this a.m. patient continues to be drinking her GoLytely at time of evaluation. Son was not at bedside at the time of my eval. Patient stated that she felt bloated from the GoLytely and was scheduled for colonoscopy in the evening. Fleet enema was ordered to help expedite the process. Patient stated that she wanted to eat. Shortly after, received a call from pathology regarding peripheral smear that appeared concerning for acute leukemia with atypical blasts of more than 40%. Heme/Onc was notified of peripheral smear and recommended transfer patient and family wish to pursue further treatment. Resident spoke with son regarding findings who was understanding as he has a granddaughter with leukemia as well. He does not feel that the patient would tolerate chemotherapy. However, he would like to wait and decide with his mother when she is done with colonoscopy and has eaten a meal. Will follow-up with GI and patient/family's decisions
[2024-02-10] MEDS: Magnesium Sulfate 2 GM Ivpb 2 GM/50 ML BAG IV (08:43)
[2024-02-10] MEDS: PANTOPRAZOLE INJ 40 MG VIAL IV ×2 (08:44→21:08)
[2024-02-10] MEDS: POTASSIUM CHLORIDE 20 mEq TABCR 40 MEQ PO ×2 (08:44)
[2024-02-10] MEDS: CALCIUM CARBONATE 600 MG TABLET PO (08:44)
[2024-02-10] MEDS: NAPH,KPH MBDB 1 PACKET (1.5 GM) PO (08:44)
[2024-02-10 09:08] LABS: Slide Review Platelets confirmed
--- NOTE | 2024-02-10 10:25 | PC.SS ---
SS follow up note; Patient is pending Oncology recommendations.
[2024-02-10] MEDS: GLYCERIN, ADULT 1 EA SUPP 1 EACH PR (12:49)
--- NOTE | 2024-02-10 16:30 | XR_ITS ---
Examination: Abdomen AP single view Technique: AP portable supine abdomen, single view Exam date and time: February 10, 2024 1616 hours INDICATIONS: Left-sided abdominal pain and blood in the stool beginning February 07, 2024 FINDINGS: Mildly air distended colon A few loops of air distended small bowel in the upper central and right abdomen No free air Surgical clips upper right abdomen Prominent osteopenia IMPRESSION: Mild small bowel ileus
--- NOTE | 2024-02-10 17:07 | ESPR_ITS ---
RE: LI CORNELL : 1940 DATE OF SERVICE: 02/10/2024 SUBJECTIVE: Ms. Cornell is an 83-year-old female, who was admitted because of pancytopenia and her pathology report came back from the peripheral blood showed atypical blast- appearing cell are present at least 40% consistent with acute leukemia and flow cytometry of peripheral blood was suggested for confirmation. PHYSICAL EXAMINATION: General: She is alert. Vital Signs: She is afebrile. Vital signs are stable. HEENT: Pupils are reactive to light and accommodation. Sclerae nonicteric. Conjunctivae are pale. Neck: Supple. There is no JVD or palpable mass. Lungs: There is good air entry bilaterally. Clear to auscultation. Heart: Regular. Abdomen: Soft. Bowel sounds are present. Extremities: 3+ pedal pulses. Central Nervous System: The patient is able to move her extremities and follow simple command. PLAN AND RECOMMENDATIONS: Her blood work today showed WBC count 2.7, hemoglobin 9.5, hematocrit 28.7 with normal indices, and platelet count 27,000. Six/seven months ago, her WBC count was 2.7, hemoglobin was 8.8, and platelet count was 114,000. I had discussed the case with resident earlier and advised that the patient should be transferred to tertiary care because of her acute leukemia. DT: 16:18:09 TT: 17:06:00 Ref: [id number] - TID: [id number] MTDD
--- NOTE | 2024-02-10 17:46 | PC.NURSE ---
was notified by to put pt on regular diet and that colonoscopy was cancelled as agreed with the son at bedside
--- NOTE | 2024-02-10 18:08 | PD.IMPROG ---
Documentation for date of: 02/10/24 Subjective Subjective Interval history: Hematological diagnosis some kind of a acute leukemia Spoke with the pathologist Colonoscopy discontinued and canceled Advance diet as tolerated Spoke with the son Exam Vital Signs Temp Pulse Resp BP Pulse Ox O2 Del Method O2 Flow Rate 97.0 F 73 18 137/78 H 97 Room Air 3 02/10/24 16:00 02/10/24 16:00 02/10/24 16:00 02/10/24 16:00 02/10/24 16:00 02/10/24 16:00 02/08/24 13:55 Constitutional Comments: Alert and oriented Routine Respiratory Exam Comments: Normal to auscultation Routine Abdominal Exam Comments: Soft nontender Objective Labs 02/10/24 04:33 02/10/24 04:33 Labs: Laboratory Results - last 24 hr 02/07/24 02/09/24 02/10/24 10:54 18:50 04:33 WBC 2.7 L RBC 3.38 L Hgb 9.5 L Hct 28.7 L MCV 85 MCH 28.1 MCHC 33.1 RDW Std Deviation 52.7 H Plt Count 26 L* Neut % (Auto) 12 L Lymph % (Auto) 49 [place] % (Auto) 38 H Eos % (Auto) 1 Baso % (Auto) 0 Neut # (Auto) 0.3 L Lymph # (Auto) 1.3 [place] # (Auto) 1.0 H Eos # (Auto) 0.0 Baso # (Auto) 0.0 Immature Gran # (Auto) 0.00 Absolute Nucleated RBC 0.06 H Immature Gran % 0 Nucleated RBC % 2 H Sodium 137 Potassium 3.5 3.0 L D Chloride 105 Carbon Dioxide 25.9 Anion Gap 6 L BUN 7 L Creatinine 0.4 L Estim Creat Clear Calc 85.0 eGFR > 60 BUN/Creatinine Ratio 18 Glucose 108 H Calculated Osmolality 272 L Calcium 7.5 L Corrected Calcium 8.3 L Phosphorus 1.7 L Magnesium 1.7 Total Bilirubin 0.9 AST < 10 ALT < 7 L Alkaline Phosphatase 68 Total Protein 5.0 L Albumin 3.0 L Globulin 2.0 L Albumin/Globulin Ratio 1.5 Misc Test Result Platelets confirmed Blood Type A Positive Antibody Screen NEGATIVE Crossmatch See Detail Blood Bank Wristband ID Yes Blood Bank Comment PLATP Ready Impressions Impression: # Acute leukemia cytometric studies in progress # Pancytopenia secondary to 1 Plan Cancel colonoscopy Advance diet Assessment & Plan A&P Narrative # Pancytopenia with leukopenia and thrombocytopenia Patient may have an underlying hematological disorder due to bone marrow suppression In addition she may have occult GI bleeding Suggestions complete iron panel B12 folate level Hematology consultation for possible bone marrow biopsy and aspirate Complete GI workup with initial upper endoscopy and if there is negative for fiberoptic colonoscopy after GoLytely prep to also evaluate the thickening of the rectal wall as evidenced by CT scan imaging of the abdomen pelvis without contrast Agree with the blood transfusion Other medical problems include # Coronary artery disease with elevated troponin most likely due to underlying low hemoglobin hematocrit and demand ischemia # COPD # Hypothyroidism # Hyperlipidemia # UTI Thank you very much for the opportunity to participate in the care of this patient Time Spent With Patient Time: Total time spent is greater than 50% in coordination of care (as documented) at patient's floor/unit and/or counseling patient:
[2024-02-10] MEDS: INSULIN LISPRO (AdmeLOG) 1 UNIT/0.01 ML UNIT SC (21:10)
[2024-02-11] VITALS (7 sets, daily range): BP systolic 112–136; BP diastolic 61–99; PULSE 87–113; RESP 17–26; TEMP 36.2–37.1; O2SAT 93–100; BMI 17.3
--- NOTE | 2024-02-11 02:45 | PC.SS ---
SS attempted to contact Fatoumata from [email or web address]. SS left VM with call back number.
[2024-02-11 06:27] LABS: Basophils % (Auto) 0 % (0-2.5); Eosinophils % (Auto) 0 % (0-10); Hematocrit 30.5 % (36.0-46.0); Hemoglobin 9.7 g/dL (12.0-16.0); Immature Granulocytes % (Auto) 0 % (0-0); Immature Granulocytes Auto 0.01 Thou/mm3 (0.00-0.00); Lymphocytes # (Auto) 1.2 Thou/mm3 (1.0-4.8); Lymphocytes % (Auto) 45 % (10-50); Mean Corpuscular HGB Conc 31.8 g/dl (31.0-37.0); Mean Corpuscular Hemoglobin 27.6 pg (25.0-35.0); Mean Corpuscular Volume 87 fL (80-100); Monocytes % (Auto) 38 % (0-12); Neutrophils # (Auto) 0.5 Thou/mm3 (1.8-7.7); Neutrophils % (Auto) 17 % (37-80); Nucleated Red Blood Cell # 0.04 Thou/mm3 (0.00-0.00); Nucleated Red Blood Cell % 2 /100 WBC (0); RDW Standard Deviation 54.8 fL (36.4-46.3); Red Blood Count 3.52 Miln/mm3 (4.00-5.20)
[2024-02-11 06:33] LABS: Platelet Count 29 Thou/mm3 (140-440); White Blood Count 2.7 Thou/mm3 (3.6-11.0)
[2024-02-11 06:37] LABS: Slide Review Platelets confirmed
[2024-02-11 07:11] LABS: Alanine Aminotransferase < 7 U/L (10-49); Albumin/Globulin Ratio 1.6 (1.2-2.2); Alkaline Phosphatase 72 U/L (46-116); Anion Gap 6 (7-16); Aspartate Amino Transferase < 8 U/L (0-34); BUN/Creatinine Ratio 14 Ratio (12-20); Bilirubin,Total 0.5 mg/dL (0.3-1.2); Blood Urea Nitrogen 7 mg/dL (9-23); Calcium 7.7 mg/dL (8.3-10.6); Calcium (Corrected) 8.5 mg/dL (8.5-10.1); Carbon Dioxide 23.9 mMol/L (20.0-31.0); Chloride 103 mMol/L (98-107); Creatinine (Component) 0.5 mg/dL (0.6-1.3); Globulin 1.9 gm/dL (2.3-3.5); Glucose 300 mg/dL (74-106); Osmolality,Calculated 275 (275-295); Phosphorous 2.1 mg/dL (2.4-5.1); Potassium 3.9 mMol/L (3.4-5.1); Sodium 133 mMol/L (136-145); Total Protein 4.9 gm/dL (5.7-8.2); eGFR > 60 See Note
[2024-02-11] MEDS: INSULIN LISPRO (AdmeLOG) 1 UNIT/0.01 ML UNIT SC ×4 (07:44→20:12)
[2024-02-11] MEDS: CALCIUM CARBONATE 600 MG TABLET PO (08:45)
[2024-02-11] MEDS: NAPH,KPH MBDB 1 PACKET (1.5 GM) PO (08:45)
[2024-02-11] MEDS: cefTRIAXone/D5w 1gm IV premix 50 ML IV (08:45)
--- NOTE | 2024-02-11 09:33 | ESDS_ITS ---
<Statement entered by Shannen Lewis DO - 02/12/24 08:18> I, Shannen Lewis DO, attest that I was physically present for the francisco portions of the service and evaluated the patient with the resident and I reviewed and discussed the case with the resident and agree with the resident's findings and plans of care as documented above <Statement entered by Cynthia Abel MD - 02/11/24 15:31> I discussed with and supervised my co-resident involved in the care of this patient. I agree with the assessment and plan as documented above. Cynthia Abel MD PGY-3 Planned Discharge Date 02/11/24 DS: Providers Provider Date of admission: 02/07/24 17:24 Primary care physician: Floyd Carlson MD Admitting Provider: Shannen Lewis DO Attending Provider on Admission: Shannen Lewis DO Consults: 02/07/24 16:46 Consult to Gastroenterology Stat Comment: Consulting Provider: Kenna Flores 02/07/24 18:19 Consult to Cardiology Stat Comment: Consulting Provider: Tushar Self Instructions: Uptrending troponins, GI bleed, EGD with sedation planned for 02/08/24. 02/09/24 09:44 Consult to Oncology Routine Comment: Aplastic anemia suspition Consulting Provider: Leyla Sigala Attending Provider on DC: Shannen Lewis DO Discharging Provider: Morales Caba MD DS: Diagnosis Problem List Completed Was Problem List Reviewed/Reconciled?: Yes Hospital Course Hospital Course Hospital course: Ms. Cornell is an 83-year-old female with a past medical history of coronary artery disease, rho-hwxmpog-iwinyjttk diabetes mellitus type 2, hyperlipidemia, COPD, essential hypertension and recurrent UTIs who presented to the ED from [facility] with a chief complaint of weakness. Patient was admitted for acute blood loss anemia for investigation. With regards to her acute blood loss anemia, patient was transfused 3 units PRBC. Her Hb improved to 9.5 from 3.8 on admission. Stool for occult blood was positive and patient subsequently had EGD. EGD completed on 02/08/[address] Flores findings include: Esophagitis, nonerosive gastritis characterized by erythema. Normal second portion of duodenum. Hiatal hernia, Z-line 32 cm from point of entry. No biopsies taken due to GI bleed and posthemorrhagic anemia. Her pancytopenia with neutropenia was investigated with a blood smear. Peripheral blood smear completed on 02/07/2024 findings include: Atypical blast apparent cells are present, at least 40%, consistent with acute leukemia. Flow cytometry of the peripheral blood is recommended for confirmation. Background severe pancytopenia. Dr. Sigala, heme oncologist consulted and is closely following the case. He recommended for the patient and her son be given the option of transfer to a tertiary center for initiation of chemotherapy. However he also stated that given patient's advanced age she is likely to not tolerate chemotherapy without adverse effects. Dr. Sigala's recommendations were discussed in detail with son, Baljit and patient. They decided to not pursue any further treatment or workup for her leukemia given her advanced age and frailty. Flow cytometry was ordered while family came to this decision. Results of flow cytometry currently pending. Son and patient have decided to pursue hospice Source of anemia now found to be due to acute leukemia. Therefore colonoscopy was canceled. Overall patient's labs are currently stable. Patient is now clinically stable and fit for discharge to SNF with hospice. Discharge diagnoses: 1. Acute leukemia 2. Pancytopenia 3. Neutropenia 4. Acute blood loss anemia?resolved 5. GI bleed ruled out 6. History of pulmonary embolism 7. Coronary artery disease 8. Essential hypertension 9. Hyperlipidemia 10. NSTEMI type I versus type II, likely type II 11. COPD 12. Xmn-hcsrrsg-qbqnjqjxl diabetes mellitus type 2 Discharge plan: - We have stopped your medication Xarelto. Please discard any remaining medication you have at home - Please continue taking the rest of your home medication as before. - If you experience any new, persistent or worsening of symptoms, either call 911, your primary doctor or present to the emergency department. Plan of care discussed with Attending Dr. Lewis and PGY3 Dr. Page Caba MD PGY 1 Time Spent with Patient Time attestation: Total time spent providing and/or coordinating discharge services: Time spent: Greater than 30 minutes (37) Exam Vital Signs Temp Pulse Resp BP Pulse Ox O2 Del Method O2 Flow Rate 97.1 F 109 H 20 130/99 H 94 L Room Air 3 02/11/24 08:00 02/11/24 08:00 02/11/24 08:00 02/11/24 08:00 02/11/24 08:00 02/11/24 08:00 02/08/24 13:55 Narrative Exam General: Awake, conversational, chronically ill elderly lady. HEENT: Normocephalic, atraumatic, mucous membranes moist. Heart: Regular rate and rhythm, no murmurs. Lungs: Clear to auscultation with no wheezing or crackles. Abdomen: Soft, nondistended, tenderness in the right upper and lower quadrant, positive bowel sounds. ?No guarding or rebound tenderness. Neurologic: Alert and oriented x3, no gross neurological deficit, and patient able to move all 4 extremities. Extremities: No edema. Skin: No rash severe ecchymosis of dorsal surfaces of both hands. Discharge Plan Plan Patient Disposition: Xfer Skilled Nsg Fac (SNF) Care Plan Goals: - We have stopped your medication Xarelto. Please discard any remaining medication you have at home - Please continue taking the rest of your home medication as before. - If you experience any new, persistent or worsening of symptoms, either call 911, your primary doctor or present to the emergency department. Prescriptions/Referrals Referrals: Floyd Carlson MD [Primary Care Provider] - Patient/Caregiver Discharge Instructions Print Language: Armenian Stand Alone Forms: Jany Award Info., Patient Portal Info Letter Quality Discharge Quality Measures VTE prophylaxis (SCDs)
--- NOTE | 2024-02-11 10:54 | ESPR_ITS ---
Documentation for date of: 02/11/24 Subjective Subjective Interval history: Colonoscopy was canceled as patient has acute leukemia Spoke with the son Diet advanced Exam Vital Signs Temp Pulse Resp BP Pulse Ox O2 Del Method O2 Flow Rate 97.1 F 109 H 20 130/99 H 94 L Room Air 3 02/11/24 08:00 02/11/24 08:00 02/11/24 08:00 02/11/24 08:00 02/11/24 08:00 02/11/24 08:00 02/08/24 13:55 Objective Labs 02/11/24 04:53 02/11/24 04:53 Labs: Laboratory Results - last 24 hr 02/11/24 04:53 WBC 2.7 L RBC 3.52 L Hgb 9.7 L Hct 30.5 L MCV 87 MCH 27.6 MCHC 31.8 RDW Std Deviation 54.8 H Plt Count 29 L* Neut % (Auto) 17 L Lymph % (Auto) 45 [place] % (Auto) 38 H Eos % (Auto) 0 Baso % (Auto) 0 Neut # (Auto) 0.5 L Lymph # (Auto) 1.2 [place] # (Auto) 1.0 H Eos # (Auto) 0.0 Baso # (Auto) 0.0 Immature Gran # (Auto) 0.01 H Absolute Nucleated RBC 0.04 H Immature Gran % 0 Nucleated RBC % 2 H Sodium 133 L Potassium 3.9 D Chloride 103 Carbon Dioxide 23.9 Anion Gap 6 L BUN 7 L Creatinine 0.5 L Estim Creat Clear Calc 65.0 eGFR > 60 BUN/Creatinine Ratio 14 Glucose 300 H D Calculated Osmolality 275 Calcium 7.7 L Corrected Calcium 8.5 Phosphorus 2.1 L Magnesium 2.0 Total Bilirubin 0.5 AST < 8 ALT < 7 L Alkaline Phosphatase 72 Total Protein 4.9 L Albumin 3.0 L Globulin 1.9 L Albumin/Globulin Ratio 1.6 Misc Test Result Platelets confirmed Impressions Impression: # 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 Colonoscopy canceled Advance diet Hematology consultation Assessment & Plan A&P Narrative # Pancytopenia with leukopenia and thrombocytopenia Patient may have an underlying hematological disorder due to bone marrow suppression In addition she may have occult GI bleeding Suggestions complete iron panel B12 folate level Hematology consultation for possible bone marrow biopsy and aspirate Complete GI workup with initial upper endoscopy and if there is negative for fiberoptic colonoscopy after GoLytely prep to also evaluate the thickening of the rectal wall as evidenced by CT scan imaging of the abdomen pelvis without contrast Agree with the blood transfusion Other medical problems include # Coronary artery disease with elevated troponin most likely due to underlying low hemoglobin hematocrit and demand ischemia # COPD # Hypothyroidism # Hyperlipidemia # UTI Thank you very much for the opportunity to participate in the care of this patient Time Spent With Patient Time: Total time spent is greater than 50% in coordination of care (as documented) at patient's floor/unit and/or counseling patient:
--- NOTE | 2024-02-11 12:07 | PC.SS ---
Addendum entered by Paris Hogan 02/11/24 12:34: Hospice order submitted to [facility] Original Note: 1120: SS received a call from Dr.L zheng pt and family agreeable to hospice services. Per son, he has spoken to [facility] and that is who they want to follow the pt. SS submitted referral via [facility], pending Hospice Order. SS also reached out to Neelima at to inquire if they can accept pt back with Hospice. No answer.. VM Left. 1205: SS received a call from Pt son Baljit, who stated he spoke to [facility] that they can take her back. SS informed Baljit SS needs to speak to Neelima directly, if he spoke to her she needs to call SS back to relay information. Baljit stated he will call her and ask her to call SS.
--- NOTE | 2024-02-11 16:00 | PC.SS ---
SS attempted to contact Fatoumata from [email or web address], however did not answer. SS left Voicemail
[2024-02-11] MEDS: oxyCODONE/APAP 5/325 TABLET 1 TAB PO (19:54)
[2024-02-12] VITALS (7 sets, daily range): BP systolic 119–132; BP diastolic 50–77; PULSE 82–104; RESP 17–19; TEMP 36.4–37; O2SAT 93–97; BMI 18.6
[2024-02-12] MEDS: PANTOPRAZOLE 40 MG TABLET PO (08:59)
[2024-02-12] MEDS: cefTRIAXone/D5w 1gm IV premix 50 ML IV (08:59)
[2024-02-12] MEDS: CALCIUM CARBONATE 600 MG TABLET PO (08:59)
--- NOTE | 2024-02-12 12:06 | PC.SS ---
Addendum entered by Oskar Brady 02/12/24 16:19: SS cancelled transportation with [facility] Addendum entered by Oskar Brady 02/12/24 14:19: SS updated medical team Kaela Patel, , facility does not have RN today due to illness. RN will be available tomorrow first thing. Addendum entered by Oskar Brady 02/12/24 12:22: SS spoke with RICARDO Goodrich, confirmed Rinku is speaking with DON and hope to have answer soon on if pt can be discharged today SW set up tentative transportation with REF Number [id number] for a 4pm SW spoke with Baljit, son and decision maker, and pt at bedside using all precautions; SW went over plan for [facility] to be in place before pt could be discharged to ; Baljit called [facility]ink[facility] Patel, SW spoke with Adelaide went over update; Adelaide is going to be working with DON at SW spoke with Rinku [facility], , provided addtional information regarding pt Original Note: SS spoke with Cyndi Goodrich, , who confirmed that for pt to return hospice services would need to be in place before able to accept pt; Kp confirmed pt has 7-day bed hold SS called RICARDO Recinos, unable leave message as vmail was full; SS sent text message
--- NOTE | 2024-02-12 13:50 | PD.RESPRO ---
Documentation for date of: 02/12/24 Subjective Subjective Interval history: Patient seen and examined at bedside. No acute complaints overnight. Son spoke with nursing facility who are ready to accept the patient, pending hospice. Exam Vital Signs Temp Pulse Resp BP Pulse Ox O2 Del Method O2 Flow Rate 97.6 F 104 H 18 119/50 L 97 Room Air 3 02/12/24 12:00 02/12/24 12:00 02/12/24 12:00 02/12/24 12:00 02/12/24 12:00 02/12/24 12:00 02/08/24 13:55 Narrative Exam General: Awake, conversational, chronically ill elderly lady. HEENT: Normocephalic, atraumatic, mucous membranes moist. Heart: Regular rate and rhythm, no murmurs. Lungs: Clear to auscultation with no wheezing or crackles. Abdomen: Non-distended. Neurologic: Awake, alert. Skin: No rash. severe ecchymosis of dorsal surfaces of both hands. Objective Labs 02/11/24 04:53 02/11/24 04:53 Quality Measures Quality Measures VTE prophylaxis (SCDs) Advance care planning discussed with:: child Assessment & Plan Assessment Current Active Medications: Generic Name Dose Route Start Last Admin Trade Name Freq PRN Reason Stop Dose Admin Acetaminophen 650 mg 02/07/24 17:25 Acetaminophen Supp 650 Mg Supp ID 03/08/24 17:24 Q6H PRN Pain Scale 1-3 or fever 100.3 Albuterol/Ipratropium 3 ml 02/10/24 14:20 Albuterol/Ipratropium (Duoneb) Rt Alysia 3 Ml Nebu INH 03/11/24 14:19 Q2HR PRN SHORTNESS OF BREATH OR WHEEZE Calcium Carbonate 600 mg 02/10/24 09:00 02/12/24 08:59 Calcium Carbonate 600 Mg Tablet PO 03/11/24 08:59 600 mg QDAY CHUYITA Administration Dextrose 25 ml 02/07/24 19:08 Dextrose 50%-Water Inj 50 Ml Syringe IV 03/08/24 19:07 Q15MIN PRN BG 50-70 responsive npo pt Dextrose 50 ml 02/07/24 19:08 Dextrose 50%-Water Inj 50 Ml Syringe IV 03/08/24 19:07 Q15MIN PRN BG <50 OR BG <70 & pt unresponsive Glucagon 1 mg 02/07/24 19:08 Glucagon Inj 1 Mg Vial IM Q15MIN PRN BG <70, and no IV access Ceftriaxone Sodium/Dextrose 50 mls @ 100 mls/hr 02/11/24 09:00 02/12/24 08:59 Rocephin/D5w 1gm Iv Premix IV 02/18/24 08:59 100 mls/hr QDAY CHUYITA Administration Nitroglycerin 0.4 mg 02/07/24 19:21 Nitroglycerin 0.4 Mg Subl Btl #25 SL Q5MIN PRN CHEST PAIN Oxycodone/Acetaminophen 1 tab 02/07/24 17:25 02/11/24 19:54 Oxycodone/Apap 5/325 Tablet PO 02/12/24 17:24 1 tab Q6H PRN Administration PAIN SCALE 4-6 (Moderate Pantoprazole Sodium 40 mg 02/12/24 09:00 02/12/24 08:59 Pantoprazole 40 Mg Tablet PO 03/13/24 08:59 40 mg QDAY CHUYITA Administration Sennosides 1 tab 02/07/24 17:25 Senna Tablet PO 03/08/24 17:24 QDAY PRN constipation Protocol Plan Ms. Cornell is an 83-year-old female with a past medical history of coronary artery disease, mdj-qojodnj-lqusnlxzj diabetes mellitus type 2, hyperlipidemia, COPD, essential hypertension and recurrent UTIs who presented to the ED from [facility] with a chief complaint of weakness. Patient was admitted for acute blood loss anemia and recieved 3 units of PRBc. Occult blood was positive so patient underwent EGD which showed esophagitis and non-erosive gastritis; and patient was planned for colonoscopy. Concurrently, the pancytopenia with neutropenia wereinvestigated with a blood smear. Peripheral blood smear on 02/06 Atypical blast apparent cells are present, at least 40%, consistent with acute leukemia. Hem-Oncologist Dr. Sigala was consulted who recommended for the patient and her son be given the option of transfer to a tertiary center for initiation of chemotherapy. However he also stated that given patient's advanced age she is likely to not tolerate chemotherapy without adverse effects. Dr. Sigala's recommendations were discussed in detail with son, Baljit and patient. They decided to not pursue any further treatment or workup for her leukemia given her advanced age and frailty. Flow cytometry was ordered while family came to this decision. Results of flow cytometry currently pending. Son and patient have decided to pursue hospice. Source of anemia now found to be due to acute leukemia. Therefore colonoscopy was canceled. Patient is stable for discharge to hospice. Pancytopenia secondary to likely acute leukemia Peripheral blood smear completed on 02/07/2024 findings include: Atypical blast apparent cells are present, at least 40%, consistent with acute leukemia. Flow cytometry of the peripheral blood is recommended for confirmation. Background severe pancytopenia. Patient and family decided to pursue hospice - Follow up flow cytometry Acute blood loss anemia requiring transfusion, resolved Esophagitis, gastritis - Continue protonix History of pulmonary embolism Spoke with nurse at the [facility], reports that she's Xarelto, received last dose 02/06/24 at 20:00. - Continue to hold Xarelto due to pancytopenia History of Coronary artery disease NSTEMI type I versus type II, likely type II Essential hypertension Hyperlipidemia COPD Ccx-utvbbuf-tkgnttowl diabetes mellitus type 2 ? DuoNebs as needed if any SOB or wheeze Health maintenance: Disposition: Anticipate discharge 02/12 to SNF with hospice Diet: regular Lines: pIVs GI Prophylaxis: Protonix 40 mg Thrombo Prophylaxis: SCDs Code status: DNR I have reviewed and discussed the patient's care with my attending, Dr. Joshua Abel MD PGY-3 Attending Provider Attestation/Addendum I, Shannen Lewis DO, attest that I was physically present for the francisco portions of the service and evaluated the patient with the resident and I reviewed and discussed the case with the resident and agree with the resident's findings and plans of care as documented above Pending placement to SNF under hospice. No acute events overnight.
[2024-02-12] MEDS: oxyCODONE/APAP 5/325 TABLET 1 TAB PO (14:32)
--- NOTE | 2024-02-12 15:41 | ESPR_ITS ---
Documentation for date of: 02/12/24 Subjective Subjective Interval history: Family has pursued hospice intermediate has accepted the patient Exam Vital Signs Temp Pulse Resp BP Pulse Ox O2 Del Method O2 Flow Rate 97.6 F 102 H 18 124/52 L 97 Room Air 3 02/12/24 15:28 02/12/24 15:28 02/12/24 15:28 02/12/24 15:28 02/12/24 15:28 02/12/24 15:28 02/08/24 13:55 Objective Labs 02/11/24 04:53 02/11/24 04:53 Impressions Impression: # Acute leukemia Hospice care accepted by the patient Assessment & Plan A&P Narrative # Pancytopenia with leukopenia and thrombocytopenia Patient may have an underlying hematological disorder due to bone marrow suppression In addition she may have occult GI bleeding Suggestions complete iron panel B12 folate level Hematology consultation for possible bone marrow biopsy and aspirate Complete GI workup with initial upper endoscopy and if there is negative for fiberoptic colonoscopy after GoLytely prep to also evaluate the thickening of the rectal wall as evidenced by CT scan imaging of the abdomen pelvis without contrast Agree with the blood transfusion Other medical problems include # Coronary artery disease with elevated troponin most likely due to underlying low hemoglobin hematocrit and demand ischemia # COPD # Hypothyroidism # Hyperlipidemia # UTI Thank you very much for the opportunity to participate in the care of this patient Time Spent With Patient Time: Total time spent is greater than 50% in coordination of care (as documented) at patient's floor/unit and/or counseling patient:
--- NOTE | 2024-02-12 16:19 | ECHO_ITS ---
Transthoracic Echo Report Ht (in): 66 Wt (lb): 118 Exam Location: Portable Status: Inpatient Audit Analyst: Nilda De La Torre Indications: Procedure Performed: BP: 139 / 66 HR: 92 Rhythm: Sinus Technical Quality: Fair MEASUREMENTS (Male / Female) Normal Values 2D ECHO LV Diastolic Diameter PLAX 4.8 cm 4.2 - 5.9 / 3.9 - 5.3 cm LV Systolic Diameter PLAX 3.6 cm IVS Diastolic Thickness 0.8 cm 0.6 - 1.0 / 0.6 - 0.9 cm LVPW Diastolic Thickness 0.9 cm 0.6 - 1.0 / 0.6 - 0.9 cm LV Relative Wall Thickness 0.4 LVOT Diameter 1.7 cm LA Volume Index 26.2 cm?/m? 16 - 28 cm?/m? Ascending Aorta Diameter 2.5 cm M-MODE Aortic Root Diameter MM 2.4 cm LA Systolic Diameter MM 3.5 cm LA Ao Ratio MM 1.5 MV E Point Septal Separation 0.7 cm AV Cusp Separation MM 2.1 cm DOPPLER AV Peak Velocity 142.0 cm/s AV Peak Gradient 8.1 mmHg AV Mean Gradient 4.0 mmHg AV Velocity Time Integral 23.1 cm AI Peak Velocity 330.0 cm/s AI Peak Gradient 43.6 mmHg AI Pressure Half Time 322.0 ms LVOT Peak Velocity 89.7 cm/s LVOT Peak Gradient 3.2 mmHg LVOT Velocity Time Integral 18.8 cm LVOT Cardiac Index 2498.1 cm?/min?m? AV Area Cont Eq vti 1.8 cm? AV Area Cont Eq pk 1.4 cm? MV Peak Velocity 141.0 cm/s MV Peak Gradient 8.0 mmHg MV Mean Velocity 70.0 cm/s MV Mean Gradient 2.0 mmHg MV Area PHT 5.5 cm? MR Peak Velocity 392.0 cm/s MR Peak Gradient 61.5 mmHg Mitral E Point Velocity 54.8 cm/s Mitral A Point Velocity 114.0 cm/s Mitral E to A Ratio 0.5 LV E' Lateral Velocity 4.7 cm/s Mitral E to LV E' Lateral Ratio 11.7 LV E' Septal Velocity 3.5 cm/s Mitral E to LV E' Septal Ratio 15.7 TR Peak Velocity 259.0 cm/s TR Peak Gradient 26.8 mmHg FINDINGS Left Ventricle Normal left ventricular size, wall thickness. Mild systolic dysfunction. Mild hypokinesis basal sept al, mid anterior septal, inferolateral. The ejection fraction is visually estimated at 40-45%. Right Ventricle The right ventricle is normal in size and systolic function. The estimated right ventricular systoli c pressure, 32mmHg. RAP 5. Left Atrium The left atrium is normal by two-dimensional, color flow and Doppler imaging with no structural abnormalities, no thrombus formation present. Right Atrium The right atrium is normal by two-dimensional imaging, color flow and Doppler imaging with no struct ural abnormalities, no thrombus formation present. Atrial Septum The interatrial septum appears normal with no evidence of a shunt. Aorta The aorta is normal by two-dimensional, color flow and Doppler interrogation. Mitral Valve The mitral valve is mildly MAC. There is mild mitral valve regurgitation. Aortic Valve The aortic valve is trileaflet. Mild sclerosis without stenosis. There is moderate aortic valve regu rgitation. Tricuspid Valve The tricuspid valve is normal by two-dimensional, color flow and Doppler interrogation. There is tra ce tricuspid valve regurgitation. Pulmonic Valve There is no significant pulmonic valve regurgitation. Vessels The pulmonary artery appears normal. The inferior vena cava pulmonary and hepatic veins appear haroldo l. Pericardium The pericardium is normal by two-dimensional imaging. There is no significant pericardial effusion. CONCLUSIONS Normal LV size. Mild systolic dysfunction. Mild hypokinesis basal septal, mid anterior septal, infer olateral. Estimated EF 40-45% Normal RV size and function. Estimated RVSP 32mmHg. Mild MAC. Mild MR. Mild AV sclerosis without stenosis. Moderate AI. Trace TR. Elyssa Youssef (Electronically Signed) Final Date: 13 February 2024 17:27
--- NOTE | 2024-02-12 18:17 | ESPR_ITS ---
RE: LI ZURITA : 1940 DATE OF SERVICE: 02/12/2024 SUBJECTIVE: The patient is an 83-year-old admitted to the hospital with severe anemia and troponin elevation, but no chest pain. Anemia is corrected. Feeling better. No chest pain or shortness of breath. The patient did undergo endoscopy _. Hemoglobin has remained stable. No further bleeding. Colonoscopy is not scheduled because of low platelet count. The platelet count remains quite low from the admission and now down to 29,000 and stable. No active bleeding so far. PHYSICAL EXAMINATION: Vital Signs: Shows blood pressure 119/50 and pulse rate 100. Neck: Supple. Lungs: Decreased breath sounds at the bases. Heart: S1 and S2 regular. No gallops. Abdomen: This and soft. ext no edema IMPRESSION: 1. Severe anemia, recurrent transfusion, etiology uncertain, possible chronic anemia, seen by turf grower as well, possible gastrointestinal bleeding. 2. Thrombocytopenia. 3. Elevated troponin levels possibly from demand ischemia due to severe anemia on admission, has come down since then, type 2 troponin elevation. The peak troponin went up to 2.7, came down to 1.9. RECOMMENDATIONS: Continue medical management. No anticoagulation because of low platelet count as well as anemia. I do not think patient has acute myocardial infarction. Most of the troponin levels are possibly due to underlying coronary artery disease and anemia. DT: 15:15:02 TT: 17:30:00 Ref: [id number] - TID: [id number] [facility]
[2024-02-12] MEDS: oxyCODONE/APAP 5/325 TABLET 2 TAB PO (18:41)
[2024-02-13] MEDS: KETOROLAC INJ 30 MG/ML VIAL 15 MG IVP (03:52)
[2024-02-13 04:00] VITALS: BP 138/65; PULSE 92; RESP 20; TEMP 36.4; O2SAT 97
[2024-02-13 06:00] VITALS: BMI 19.6
[2024-02-13 07:18] VITALS: PULSE 78; RESP 21; O2SAT 96
[2024-02-13 08:00] VITALS: BP 139/66; PULSE 92; RESP 18; TEMP 36.1; O2SAT 97
--- NOTE | 2024-02-13 08:41 | PC.SS ---
Addendum entered by SAIDA Rizo 02/13/24 12:31: Received call from [facility], transport moved to 1400. Updated bed side nurse Nicole, patient's son Adelaide Smiley with [facility] and [facility] staff. Addendum entered by SAIDA Rizo 02/13/24 10:02: [facility] ETA 1300. Updated bed side nurse Nicole, patient's son Adelaide Smiley with [facility] and [facility] staff. Addendum entered by SAIDA Rizo 02/13/24 09:57: DC orders are in. Transportation arranged through [employer]. Reference number [id number]. Pending ETA. Addendum entered by SAIDA Rizo 02/13/24 09:26: Spoke with patient's sonBaljit @ [phone]. Baljit confirmed the patient's discharge plan to [facility] followed by [facility]. career services coordinator to arrange transportation, pending discharge orders. Addendum entered by SAIDA Rizo 02/13/24 08:48: Contacted Adelaide Shook at [facility] @ [phone]. She confirmed they can accept the patient for hospice services and follow the patient's care at [facility]. Adelaide requested ETA for transportation once patient ready for discharge. Original Note: SS follow up: spoke with Neelima at [facility], she confirmed they are ready to accept the patient at the facility today followed by [facility].
[2024-02-13] MEDS: CALCIUM CARBONATE 600 MG TABLET PO (09:03)
[2024-02-13] MEDS: PANTOPRAZOLE 40 MG TABLET PO (09:03)
[2024-02-13] MEDS: cefTRIAXone/D5w 1gm IV premix 50 ML IV (09:03)
[2024-02-13 09:58] LABS: Flow Cytometry* See Sep Rpt
--- NOTE | 2024-02-13 11:25 | ESDS_ITS ---
<Statement entered by Shannen Lewsi DO - 02/13/24 12:36> I, Shannen Lewis DO, attest that I was physically present for the francisco portions of the service and evaluated the patient with the resident and I reviewed and discussed the case with the resident and agree with the resident's findings and plans of care as documented above Planned Discharge Date 02/13/24 DS: Providers Provider Date of admission: 02/07/24 17:24 Primary care physician: Floyd Carlson MD Admitting Provider: Shannen Lewis DO Attending Provider on Admission: Shannen Lewis DO Consults: 02/07/24 16:46 Consult to Gastroenterology Stat Comment: Consulting Provider: Kenna Flores 02/07/24 18:19 Consult to Cardiology Stat Comment: Consulting Provider: Tushar Self Instructions: Uptrending troponins, GI bleed, EGD with sedation planned for 02/08/24. 02/09/24 09:44 Consult to Oncology Routine Comment: Aplastic anemia suspition Consulting Provider: Leyla Sigala 02/11/24 12:25 Referral Hospice Routine Comment: Attending Provider on DC: Cynthia Abel MD Discharging Provider: Cynthia Abel MD DS: Diagnosis Problem List Completed Was Problem List Reviewed/Reconciled?: Yes Hospital Course Hospital Course Hospital course: Ms. Cornell is an 83-year-old female with a past medical history of coronary artery disease, die-nrqhmoe-xmqzzgitp diabetes mellitus type 2, hyperlipidemia, COPD, essential hypertension and recurrent UTIs who presented to the ED from [facility] with a chief complaint of weakness. Patient was admitted for acute blood loss anemia and recieved 3 units of PRBc. Occult blood was positive so patient underwent EGD which showed esophagitis and non-erosive gastritis; and patient was planned for colonoscopy. Concurrently, the pancytopenia with neutropenia were investigated with a blood smear. Peripheral blood smear on 02/06 Atypical blast apparent cells are present, at least 40%, consistent with acute leukemia. Hem-Oncologist Dr. Sigala was consulted who recommended for the patient and her son be given the option of transfer to a tertiary center for initiation of chemotherapy. However he also stated that given patient's advanced age she is likely to not tolerate chemotherapy without adverse effects. Dr. Sigala's recommendations were discussed in detail with son, Baljit and patient. They decided to not pursue any further treatment or workup for her leukemia given her advanced age and frailty. Son and patient have decided to pursue hospice. Source of anemia now found to be due to acute myeloid leukemia. Therefore colonoscopy was canceled. She was also treated with antibiotics for a UTI. Patient is stable for discharge to hospice. Discharge diagnoses: 1. Acute myeloid leukemia 2. Pancytopenia 3. Neutropenia 4. Acute blood loss anemia?resolved 5. GI bleed ruled out 6. History of pulmonary embolism 7. Coronary artery disease 8. Essential hypertension 9. Hyperlipidemia 10. NSTEMI type I versus type II, likely type II 11. COPD 12. Kdi-hztsjvj-hlikqqyak diabetes mellitus type 2 Discharge plan: - Continue the cephalexin for 5 more days to complete treatment for your UTI. - We have stopped your medication Xarelto. Please discard any remaining medication you have at home - Please continue taking the rest of your home medication as before. - If you experience any new, persistent or worsening of symptoms, either call 911, your primary doctor or present to the emergency department. I have reviewed and discussed the patient's care with my attending, Dr. Joshua Abel MD PGY-3 Status at Discharge Overall status at discharge: patient is back to baseline Time Spent with Patient Time attestation: Total time spent providing and/or coordinating discharge services: 35 min Time spent: Greater than 30 minutes Exam Vital Signs Temp Pulse Resp BP Pulse Ox O2 Del Method O2 Flow Rate 97.0 F 92 18 139/66 H 97 Room Air 3 02/13/24 08:00 02/13/24 08:00 02/13/24 08:00 02/13/24 08:00 02/13/24 08:00 02/13/24 08:00 02/08/24 13:55 Narrative Exam General: Awake, conversational, chronically ill elderly lady. HEENT: Normocephalic, atraumatic, mucous membranes moist. Heart: Regular rate and rhythm, no murmurs. Lungs: Clear to auscultation with no wheezing or crackles. Abdomen: Non-distended. Neurologic: Awake, alert. Skin: No rash. severe ecchymosis of dorsal surfaces of both hands. Discharge Plan Plan Patient Disposition: Xfer Skilled Nsg Fac (SNF) Patient condition on transfer: Stable and Benefits outweigh risks Care Plan Goals: Patient to be discharged to nursing facility with hospice - Take cephalexin 250mg by mouth four times a day for 5 more days to complete the course of antibiotics for your UTI. - Take protonix 40mg every day for your gastritis. - Take percocet as needed for pain. - We have stopped your medication Xarelto. Please discard any remaining medication you have at home - Please continue taking the rest of your home medication as before. - If you experience any new, persistent or worsening of symptoms, either call 911, your primary doctor or present to the emergency department. Prescriptions/Referrals Prescriptions/Med Rec: New pantoprazole 40 mg Tablet,Delayed Release (Dr/Ec) 40 mg PO QDAY 30 Days Qty: 30 0RF cephalexin 250 mg capsule 250 mg PO Q6H Qty: 20 0RF oxycodone-acetaminophen 5-325 mg Tablet 2 tab PO Q6HR MDD 8 PRN (Reason: pain) Qty: 10 0RF Referrals: Floyd Carlson MD [Primary Care Provider] - Patient/Caregiver Discharge Instructions Print Language: Kosovan Stand Alone Forms: Jany Award Info., Patient Portal Info Letter Discharge Order Discharge Orders: Discharge (Routine); Ordered 02/13/24 Ordered By: Cynthia Abel Quality Discharge Quality Measures comfort care/end of life
[2024-02-13 12:00] VITALS: BP 141/76; PULSE 90; RESP 18; TEMP 36.2; O2SAT 96
--- NOTE | 2024-02-13 12:11 | PD.IMPROG ---
Documentation for date of: 02/13/24 Subjective Subjective Interval history: WBC count 2.7 Hemoglobin hematocrit 9.7 and 30.5 Platelet count 24,000 The son has decided for the patient to get hospice care and not pursue further management of the acute leukemia Exam Vital Signs Temp Pulse Resp BP Pulse Ox O2 Del Method O2 Flow Rate 97.0 F 92 18 139/66 H 97 Room Air 3 02/13/24 08:00 02/13/24 08:00 02/13/24 08:00 02/13/24 08:00 02/13/24 08:00 02/13/24 08:00 02/08/24 13:55 Objective Labs 02/11/24 04:53 02/11/24 04:53 Labs: Laboratory Results - last 24 hr 02/10/24 13:49 Misc Test Result Cancelled Impressions Impression: # 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 # Gastritis Continue current management Assessment & Plan A&P Narrative # Pancytopenia with leukopenia and thrombocytopenia Patient may have an underlying hematological disorder due to bone marrow suppression In addition she may have occult GI bleeding Suggestions complete iron panel B12 folate level Hematology consultation for possible bone marrow biopsy and aspirate Complete GI workup with initial upper endoscopy and if there is negative for fiberoptic colonoscopy after GoLytely prep to also evaluate the thickening of the rectal wall as evidenced by CT scan imaging of the abdomen pelvis without contrast Agree with the blood transfusion Other medical problems include # Coronary artery disease with elevated troponin most likely due to underlying low hemoglobin hematocrit and demand ischemia # COPD # Hypothyroidism # Hyperlipidemia # UTI Thank you very much for the opportunity to participate in the care of this patient Time Spent With Patient Time: Total time spent is greater than 50% in coordination of care (as documented) at patient's floor/unit and/or counseling patient:
--- NOTE | 2024-02-13 12:24 | PC.NURSE ---
GAVE REPORT TO PIYUSH AT [facility]
--- NOTE | 2024-02-13 14:27 | PC.NURSE ---
Patients blue blanket not found. If found please call son Baljit [phone]
--- NOTE | 2024-02-16 09:12 | ESCONSULT_ITS ---
RE: LI CORNELL : 1940 DATE OF CONSULTATION: 02/09/2024 REFERRING PHYSICIANS: Dr. Acosta REASON FOR CONSULTATION: Pancytopenia. HISTORY OF PRESENT ILLNESS: Mrs. Cornell is an 83-year-old female with a history of coronary artery disease, type 2 diabetes mellitus, COPD, hypertension, recurrent UTI and active smoker, who was brought to emergency room from shelter due to the weakness and low hemoglobin. Her son mentioned to me that they do the blood work every 6 months and the report was faxed to the shelter and then patient was brought here, but he also mentioned to me that 6 months ago, the blood counts were reasonable, but I do not have any documentation. It is noted from the record. Her labs showed WBC count of 2, hemoglobin of 3.8, hematocrit 13.3, and platelet count was 35,000. BUN was 32, creatinine was 0.7, GFR was 46, and blood sugar was 178. Troponin was 1.361. BNP was 738. It is noted that her FOBT was positive and I was also mentioned by the resident that EGD was negative, but patient's son mentioned to me that there is always a problem with her blood in the stool. Her CT scan showed bilateral renal parenchymal scar, nephrolithiasis without hydronephrosis, diffuse nonspecific colitis and pattern of the large amount of stool in the rectum. It is also noted that patient was taking Xarelto because there is question about PE. There is no record available to make any kind of comparison from her previous bloodwork for her CBC. The patient denies any headaches, epistaxis, cough or hemoptysis. She denied cardiac type of chest pain, PND or orthopnea. She denies any hematemesis, melena or hematochezia. She denies dysuria or hematuria. Denies change in skeletomuscular type of pain. She had a past history positive for cardiac disorder, bradycardia, atherosclerotic heart disease, hyperlipidemia, COPD, PE, diabetes mellitus, depression and anxiety. SOCIAL HISTORY: Currently smokes daily. PHYSICAL EXAMINATION: GENERAL: She is alert. She is afebrile. HEENT: Pupils are reactive to light and accommodation. Sclerae nonicteric. NECK: Supple. There is no JVD or palpable mass. LUNGS: Good air entry bilaterally. They are clear to auscultation. There are scattered rhonchi. HEART: Regular. ABDOMEN: Soft. Bowel sounds are present. EXTREMITIES: 3+ pedal pulses. There is no cyanosis or edema. CENTRAL NERVOUS SYSTEM: The patient will move her extremities and follows the command. PLAN AND RECOMMENDATION: Her blood work today, WBC count of 2, RBC count is 3.23, hemoglobin 8.9, hematocrit 27.1 with normal indices, and platelet count of 25,000, but patient did receive a blood transfusion. Her sodium is 145, potassium is pending, chloride is 109, BUN 16, creatinine 0.4, GFR more than 60, blood sugar is 142, total protein is 4.9, and albumin is 3.0. Her blood work done on 02/07/2024 has a WBC count of 2, hemoglobin was 3.8, hematocrit of 13.3, MCV was 84, MCH 23.9, and platelet count was 35,000. Retic count was 3.3. Iron studies are not available. Her total bilirubin was 0.7. Vitamin B12 level was 311. There are no iron studies or ferritin level is available for me to make any kind of comment and I do not have any previous record. The patient's EGD was reported to be negative for any active blood, but the patient is also scheduled for the colonoscopy. Once all these studies are available, then I can make the recommendation accordingly. If patient has any kind of myeloproliferative/myelodysplastic syndrome, patient has a pretty good response to the low hemoglobin and if that has to be done, then patient will be scheduled for bone marrow aspiration depending on the finding. I agree with the present plan of treatment. I thank you, Dr. Acosta for letting me participate in the care of this interesting patient. If you have any questions, please feel free to contact me. DT: 16:29:13 TT: 17:11:00 Ref: [id number] - TID: [id number] MTDD
== END 2024-02-13 14:28 | disposition skilled nursing facility (03) | DRG 834 ==
LOC: SERX 12:47 → SERHOLD 18:22 → S2NX 22:19 → S3NX 02-11 17:28
PROVIDERS: Specialist; Student in an Organized Health Care Education/Training Program; Admitting Provider Internal Medicine; Emergency Provider Emergency Medicine; PCP Family Medicine; Visit Provider Internal Medicine
PROC: 0DJ08ZZ Inspection of Upper Intestinal Tract, Via Natural or Artificial Opening Endoscopic (ICD-10-PCS; CPT 43239; principal; 2024-02-08 12:30)
DX: C92.00 Acute myeloblastic leukemia, not having achieved remission (principal); I21.A1 Myocardial infarction type 2; D61.818 Other pancytopenia; N39.0 Urinary tract infection, site not specified; D62 Acute posthemorrhagic anemia; K20.90 Esophagitis, unspecified without bleeding; K29.60 Other gastritis without bleeding; K44.9 Diaphragmatic hernia without obstruction or gangrene; D63.0 Anemia in neoplastic disease; J44.9 Chronic obstructive pulmonary disease, unspecified; I25.10 Atherosclerotic heart disease of native coronary artery without angina pectoris; E11.9 Type 2 diabetes mellitus without complications; E03.9 Hypothyroidism, unspecified; I10 Essential (primary) hypertension; E78.5 Hyperlipidemia, unspecified; K52.9 Noninfective gastroenteritis and colitis, unspecified; E87.6 Hypokalemia; K62.89 Other specified diseases of anus and rectum; N20.0 Calculus of kidney; F17.210 Nicotine dependence, cigarettes, uncomplicated; Z86.711 Personal history of pulmonary embolism; Z87.440 Personal history of urinary (tract) infections; Z66 Do not resuscitate; Z79.01 Long term (current) use of anticoagulants; Z51.5 Encounter for palliative care; Z91.041 Radiographic dye allergy status
CPT/HCPCS: 36415; 36430; 74018; 74176; 80053; 81001; 82270; 82607; 82746; 83540; 83550; 83605; 83690; 83735; 83880; 84100; 84132; 84145; 84484; 85014; 85018; 85025; 85046; 85610; 85730; 86850; 86900; 86901; 86923; 86965; 87040; 87077; 87086; 87186; 93005; 93306; 94664; 96374; 96375; 99285; J0696; J1815; J1885; J2250; J2354; J2405; J2470; J3010; J3475; J3480; J3490; J7050; P9016; A9270